=== PATIENT | female | born 1950 | race Caucasian/White ===

== ENCOUNTER 2021-07-10 14:40 | Outpatient (CLI) | payer MEDICARE, OTHER, SELFPAY ==
--- NOTE | 2021-07-10 14:57 | CT_ITS ---
WS: [id number] CT ABDOMEN CONTRAST TECHNIQUE: Contrast enhanced CT of the abdomen with coronal and sagittal reformatted images. CLINICAL INFORMATION: ABD HERNIA COMPARISON: None. DLP: 788.[address] scans at [facility] use at least one of these dose optimization techniques: automated e xposure control; mA and/or kV adjustment per patient size (includes targeted exams where dose is matc hed to clinical indication); or iterative reconstruction. FINDINGS: Wide mouth fat-containing epigastric hernia with hernia mouth measuring 3.6 x 3.3 cm transv erse by craniocaudal Tiny fat-containing umbilical hernia measuring 6 mm. No herniated bowel. Diffuse fatty infiltration of the liver. Normal portal vein and splenic vein. Cholecystectomy clips. Normal spleen. Normal GE ju nction with dilatation common bile duct likely physiologic postcholecystectomy measuring 8 mm. Normal pancreatic parenchymal enhancement. Adrenal glands are normal. Normal renal parenchymal enhancement. No hydronephrosis. Normal celiac and SMA. Normal caliber abdominal aorta. Aortic calcification. Disc space narrowing worse L5-S1. Mild disc bulging L4-L5 and L5-S1. CT/CT abdomen w con* [id number] IMPRESSION: 1. Wide mouth fat-containing epigastric hernia with hernia mouth measuring 3.6 x 3.3 cm transverse by craniocaudal 2. Tiny fat-containing umbilical hernia with hernia mouth measuring 6 mm. 3. Mild diffuse fatty infiltration of the liver. 4. Prior cholecystectomy with dilatation of the common bile duct likely physio logic postcholecystectomy. 5. No other significant findings.
[2021-07-10 16:28] LABS: Blood Urea Nitrogen 11 mg/dL (8-23)
== END 2021-07-10 14:41 | disposition home or self-care (01) ==
PROVIDERS: PCP Nurse Practitioner Family; Visit Provider Nurse Practitioner Family
DX: R10.13 Epigastric pain (principal); R11.0 Nausea; K46.9 Unspecified abdominal hernia without obstruction or gangrene; K76.0 Fatty (change of) liver, not elsewhere classified; Z90.49 Acquired absence of other specified parts of digestive tract
CPT/HCPCS: 74160; 82565; 84520; Q9967

== ENCOUNTER → 2021-07-18 15:29 | Outpatient (BNVA) | payer MEDICARE, OTHER, SELFPAY | PROVIDERS: PCP Nurse Practitioner Family; Visit Provider Surgery | DX: K43.9 Ventral hernia without obstruction or gangrene (principal); Z12.11 Encounter for screening for malignant neoplasm of colon; F17.210 Nicotine dependence, cigarettes, uncomplicated | CPT/HCPCS: 99203 ==

== ENCOUNTER 2021-09-06 06:51 | Day surgery (SDC) | payer MEDICARE, OTHER, SELFPAY ==
[2021-09-04 09:50] VITALS: BMI 29.6
--- NOTE | 2021-09-06 06:15 | P.HP_ITS ---
Same Day Surgery H&P Indication for Procedure/HPI DATE OF PROCEDURE: September 06, 2021 CHIEF COMPLAINT/INDICATIONFOR SURGICAL PROCEDURE: Abdominal pain PREOP DIAGNOSIS: History of hernia and abdominal pain PLANNED PROCEDURE: Operation Date: 09/06/21 08:30 Proposed Procedures p Colonoscopy 33832/z12.11(Not Applicable) - Doug Castillo MD 07/18/2021 This is a pleasant 70-year-old female patient with well-known history of long years of tobacco dependency.? Patient continues to smoke and she does have chronic cough.? Reports history of nausea and vomiting back in April and she ended up getting a CT scan of the abdomen pelvis that did show: 1.? Wide mouth fat-containing epigastric hernia with hernia mouth measuring 3.6 x 3.3 cm transverse by craniocaudal 2.? Tiny fat-containing umbilical hernia with hernia mouth measuring 6 mm. 3.? Mild diffuse fatty infiltration of the liver. 4.? Prior cholecystectomy with dilatation of the common bile duct likely physiologic postcholecystectomy. 5.? No other significant findings. Patient reports no history of associated discomfort or pain related to the hernias and does nausea and vomiting symptoms are gone.? Patient reports that she never had a colonoscopy for screening before. 09/06/2021 Patient comes today for screening colonoscopy ROS All systems have been reviewed negative except as for the above or per problem list. Medications/Allergies* Home Medications Medication Instructions Recorded Confirmed Type cetirizine 10 mg capsule (Allergy 10 mg PO DAILY PRN 07/18/21 09/04/21 History Relief (cetirizine)) ibuprofen 200 mg capsule 200 mg PO Q6H PRN 07/18/21 09/04/21 History Allergies/Adverse Reactions Allergy/AdvReac Type Severity Reaction Status Date / Time No Known Allergies Allergy Verified 09/06/21 07:58 Pertinent History/Comorbid Conditions* Social History Smoking and tobacco status: current every day smoker Pertinent Exam Findings alert, oriented x 3, regular rate & rhythm and procedure specific exam findings (Abdominal examination nontender nondistended soft stable hernia exam) Recommendations Surgery/Procedure today (Screening colonoscopy) Coding Level of Care Code Acute Soldering Machine Operator Automatic for Nava Brooks
[2021-09-06 07:18] VITALS: BP 142/77; PULSE 75; RESP 18; TEMP 36.3; O2SAT 94
[2021-09-06] MEDS: sodium chloride 0.9% 1,000 ML 30 ML IV (07:29)
--- NOTE | 2021-09-06 07:58 | ANES.PREANE2 ---
Pre-Anesthetic Assessment Height/Weight: Height 1.65 m Weight 80.739 kg Temp Pulse Resp BP Pulse Ox 97.3 F L 75 18 142/77 94 09/06/21 07:18 09/06/21 07:18 09/06/21 07:18 09/06/21 07:18 09/06/21 07:18 Preop Diagnosis: Screening colonoscopy Operation Date: 09/06/21 08:30 Proposed Procedures p Colonoscopy 40472/z12.11(Not Applicable) - Doug Castillo MD Familial anesthetic complications: None Was Beta Andrew taken within 24 hours: N/A Was Clonidine taken within 24 hours: N/A Last intake: Intake Last Liquid Date 09/05/21 Last Liquid Time 23:30 Last Solid Date 09/04/21 Social Tobacco and No alcohol Exam alert, oriented x 3 and regular rate & rhythm Airway Submandibular: within normal limits Cervical ROM: within normal limits Mallampati: Class II Dentition: false Pulmonary Chronic Obstructive Pulmonary Disease Anesthetic Plan ASA status: 3 Anesthesia: MAC Medications/Allergies Home Medications Medication Instructions Recorded Confirmed Last Taken Type cetirizine 10 mg capsule (Allergy 10 mg PO DAILY PRN 07/18/21 09/04/21 09/05/21 History Relief (cetirizine)) ibuprofen 200 mg capsule 200 mg PO Q6H PRN 07/18/21 09/04/21 09/05/21 History Allergies Allergy/AdvReac Type Severity Reaction Status Date / Time No Known Allergies Allergy Verified 09/06/21 07:58 Current Medications Generic Name Dose Route Start Last Admin Trade Name Freq PRN Reason Stop Dose Admin Sodium Chloride 1,000 mls @ 30 mls/hr 09/06/21 07:15 09/06/21 07:29 Sodium Chloride 0.9% IV 09/07/21 07:14 30 mls/hr .Q24H NAYELY Administration PFSH Anesthesia Social History Smoking and tobacco status: current every day smoker Data Anesthesia Cardiac Studies: No Data to Display
[2021-09-06 08:58] VITALS: BP 147/90; PULSE 80; RESP 18; TEMP 36.1; O2SAT 92
[2021-09-06 09:10] VITALS: BP 156/87; PULSE 78; RESP 16; TEMP 36.3; O2SAT 94
--- NOTE | 2021-09-06 10:58 | ANE.PACU2 ---
Inpatient post-anesthesia follow up: Airway intact: Yes Vital signs: Temperature 97.4 F Pulse Rate 78 Respiratory Rate 16 Blood Pressure 156/87 Pulse Oximetry 94 Oxygen Delivery Me thod Room Air Oxygen Flow Rate 4 Fraction of Inspir ed Oxygen Hydration adequate: Yes Nausea and vomiting: No Pain level: 1
== END 2021-09-06 09:35 | disposition home or self-care (01) ==
PROVIDERS: PCP Nurse Practitioner Family; Visit Provider Surgery
PROC: 0DJD8ZZ Inspection of Lower Intestinal Tract, Via Natural or Artificial Opening Endoscopic (ICD-10-PCS; CPT 45378; principal; 2021-09-06 08:30)
DX: Z12.11 Encounter for screening for malignant neoplasm of colon (principal); K57.30 Diverticulosis of large intestine without perforation or abscess without bleeding; D12.8 Benign neoplasm of rectum; J44.9 Chronic obstructive pulmonary disease, unspecified; F17.200 Nicotine dependence, unspecified, uncomplicated
CPT/HCPCS: 45385; 88305; J2704; J7030

== ENCOUNTER → 2021-09-24 10:56 | Outpatient (BNVA) | payer MEDICARE, OTHER, SELFPAY | PROVIDERS: PCP Nurse Practitioner Family; Visit Provider Surgery | DX: Z09 Encounter for follow-up examination after completed treatment for conditions other than malignant neoplasm (principal); K57.90 Diverticulosis of intestine, part unspecified, without perforation or abscess without bleeding; K63.5 Polyp of colon | CPT/HCPCS: 99213 ==

== ENCOUNTER 2022-06-12 05:13 | Inpatient (IN) | payer MEDICARE, OTHER, SELFPAY ==
[2022-06-12] VITALS (204 sets, daily range): BP systolic 82–177; BP diastolic 48–113; PULSE 34–85; RESP 12–27; TEMP 36.1–36.9; O2SAT 90–99; BMI 29.7; BMI 30.6
--- NOTE | 2022-06-12 05:18 | ECG_ITS ---
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 Measurements Intervals [place] Rate: 68 P: 71 MN: 147 QRS: 78 QRSD: 92 T: 75 QT: 406 QTc: 433 Interpretive Statements SINUS RHYTHM No previous ECG available for comparison Electronically Signed On 06-12-2022 15:06:23 HOSPITAL NURSING ASSISTANT by Antoine Edmond M.D. [id number]
--- NOTE | 2022-06-12 05:26 | XRR_ITS ---
PROCEDURE INFORMATION: Exam: XR Chest Exam date and time: 06/12/2022 5:30 AM Age: 71 years old Clinical indication: Other: N/v lue tingling; Patient HX: N/v with left upper ext. Tingling. ; Additional info: Cp TECHNIQUE: Imaging protocol: Radiologic exam of the chest. Views: 1 view. COMPARISON: CT abdomen w con* [id number] 07/10/2021 4:11 PM FINDINGS: Lungs: Unremarkable. No consolidation. Pleural spaces: Unremarkable. No pleural effusion. No pneumothorax. Heart/Mediastinum: Unremarkable. No cardiomegaly. Bones/joints: Unremarkable. XR/XR chest 1V portable [id number] IMPRESSION: No acute findings.
--- NOTE | 2022-06-12 05:26 | ECG_ITS ---
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 Measurements Intervals [place] Rate: 50 P: 66 NE: 153 QRS: 81 QRSD: 98 T: 73 QT: 484 QTc: 443 Interpretive Statements SINUS BRADYCARDIA No previous ECG available for comparison Electronically Signed On 06-12-2022 15:06:27 AGENT BASED MODELER by Antoine Edmond M.D. [id number]
--- NOTE | 2022-06-12 05:27 | ED_ITS ---
Documented by User: Uziel Herbert MD 06/12/22 05:39 HPI - Extremity Problem General: Chief complaint: Extremity Problem,Nontraumatic Stated complaint: pain in left arm/shoulder, nausea Time Seen by Provider: 06/12/22 05:21 Source: patient Mode of arrival: ambulatory Limitations: no limitations History of Present Illness: 71-year-old female states she started having some left arm pain last night at midnight states she is also had some nausea states pain is a sharp pain mainly in her upper arms. She denies any chest pain or shortness of breath currently she was seen by her PCP yesterday and was diagnosed with hypertension was started on metoproll.. No history of cardiac disease Associated symptoms: Deny chest pain, fever(s) or rash Review of Systems Const: Denies: fever(s), chills, body aches or change in appetite Eyes: Denies: blurry vision or eye discomfort ENMT: Denies: throat pain or dental pain Card: Denies: chest pain Resp: Denies: dyspnea GI: Reports: nausea : Denies: dysuria Musc: Reports: extremity pain Skin/Breast: Denies: rash Neuro: Denies: headache(s) Psych: Denies: depression Mckay/Lymph: Denies: easy bruising All/Imm: Denies: urticaria PFSH ED PFSH: Medical History Hypertension Social History Smoking and tobacco status: current every day smoker Physical Exam Const: COMMON NORMALS: no acute distress, patient oriented x3 and healthy appearing HENMT: COMMON NORMALS: normocephalic and atraumatic HEAD & SCALP: normocephalic and atraumatic Eye: COMMON NORMALS: Equal, round and reactive pupils present and EOMs intact bilaterally PUPIL: Yes Equal, round and reactive pupils present Neck/C-Spine: COMMON NORMALS: full ROM and supple Chest: COMMONS NORMALS: normal inspection of the chest and normal palpation of entire chest wall Resp: COMMON NORMALS: normal respiratory effort, No retractions, No use of accessory muscles and clear to auscultation bilaterally AUSCULTATION: clear to auscultation bilaterally Cardio: COMMON NORMALS: regular rate, regular rhythm and No murmurs present (Cardio) RATE: regular rate RHYTHM: regular rhythm GI: COMMON NORMALS: Normal to inspection, nondistended, normoactive bowel sounds present, Soft to palpation, non-tender and no masses PALPATION: Yes Soft to palpation Extremity: COMMON NORMALS: normal to inspection and full ROM NARRATIVE EXTREMITY EXAM: Some tenderness to left shoulder left upper arm and attributes her pain Neuro: COMMON NORMALS: patient oriented x3, moves all extremities and no focal motor deficits Psych: COMMON NORMALS: mental status grossly normal, Normal thought process present and cooperative THOUGHT PROCESS: Normal thought process present Skin: COMMON NORMALS: no rashes or lesions noted and no wounds GENERAL SKIN EXAM: no rashes or lesions noted Course Vital Signs: Vital signs: Vital Signs Temperature 97.9 F 06/12/22 05:24 Pulse Rate 61 06/12/22 08:24 Respiratory Rate 16 06/12/22 08:24 Blood Pressure 117/66 06/12/22 08:24 Pulse Oximetry 96 06/12/22 08:24 Oxygen Delivery Me thod 06/12/22 08:24 Oxygen Flow Rate 4 06/12/22 08:24 MDM - Extremity (Nontraumatic) Lab Data 06/12/22 05:30 06/12/22 05:30 Radiology Impressions Chest X-Ray 06/12/22 05:26 IMPRESSION: No acute findings. Chest/Abdomen/Pelvis CTA 06/12/22 06:27 IMPRESSION: 1. No thoracic aortic dissection or aneurysm. 2. No pulmonary embolism. 3. Mild centrilobular emphysema. COMMENTS: In the absence of a history or active diagnosis of lung cancer, it is recommended that this patient with emphysema be evaluated for enrollment in a low dose CT lung cancer screening program. Laboratory Results WBC 8.2 10^3/uL (4.0-10.0) 06/12/22 05:30 RBC 5.17 10^6/uL (4.1-5.3) 06/12/22 05:30 Hgb 15.3 g/dL (11.5-15.3) 06/12/22 05:30 Hct 47.5 % (37.0-47.0) H 06/12/22 05:30 MCV 91.9 fl (81-99) 06/12/22 05:30 MCH 29.6 pg (28.0-34.0) 06/12/22 05:30 MCHC 32.2 g/dL (30.0-36.0) 06/12/22 05:30 RDW 13.1 % (12.1-15.1) 06/12/22 05:30 Plt Count 295 10^3/cmm (130-400) 06/12/22 05:30 MPV 10.8 fL (7.4-10.4) H 06/12/22 05:30 Neut % (Auto) 57.3 % 06/12/22 05:30 Lymph % (Auto) 30.6 % 06/12/22 05:30 [place] % (Auto) 7.6 % 06/12/22 05:30 Eos % (Auto) 3.6 % 06/12/22 05:30 Baso % (Auto) 0.7 % 06/12/22 05:30 Neut # (Auto) 4.67 10^3/uL (1.8-7.7) 06/12/22 05:30 Lymph # (Auto) 2.5 10^3/uL (0.8-4.8) 06/12/22 05:30 [place] # (Auto) 0.6 10^3/uL (0.2-0.9) 06/12/22 05:30 Eos # (Auto) 0.3 10^3/uL (0.0-0.8) 06/12/22 05:30 Baso # (Auto) 0.1 10^3/uL (0.0-0.1) 06/12/22 05:30 Nucleated RBC % (auto) 0 % 06/12/22 05:30 Nucleated RBCs # 0.0 /100WBC 06/12/22 05:30 Sodium 140 mmol/L (136-145) 06/12/22 05:30 Potassium 4.1 mmol/L (3.5-5.1) 06/12/22 05:30 Chloride 103 mmol/L (98-107) 06/12/22 05:30 Carbon Dioxide 26 mmol/L (22-29) 06/12/22 05:30 Anion Gap 15.1 (5-19) 06/12/22 05:30 BUN 13 mg/dL (8-23) 06/12/22 05:30 Creatinine 0.7 mg/dL (0.5-0.9) 06/12/22 05:30 GFR Calculation 82.7 mL/min (90-130) L 06/12/22 05:30 Glucose 95 mg/dL (65-115) 06/12/22 05:30 Calculated Osmolality 290 mOsm/kg (285-295) 06/12/22 05:30 Calcium 9.3 mg/dL (8.5-10.5) 06/12/22 05:30 Total Bilirubin 0.3 mg/dL (0.15-1.2) 06/12/22 05:30 AST 17 U/L (0-32) 06/12/22 05:30 ALT 18 U/L (0-33) 06/12/22 05:30 Alkaline Phosphatase 92 U/L (35-105) 06/12/22 05:30 Troponin T Baseline 15 ng/L (0-10) H 06/12/22 05:30 Total Protein 7.0 g/dL (6.6-8.7) 06/12/22 05:30 Albumin 4.0 g/dL (3.5-5.2) 06/12/22 05:30 Globulin 3.0 g/dL (1.3-4.6) 06/12/22 05:30 TSH 2.52 uIU/mL (0.27-4.20) 06/12/22 05:30 Discharge Plan Discharge Admit Provider: Chriss Feliz Condition: Stable Coding Level of Care Code ED Cost Analyst for Chg Fwd Documented by User: Chung Rodriguez DO 06/12/22 08:31 HPI - Extremity Problem General: Chief complaint: Extremity Problem,Nontraumatic Stated complaint: pain in left arm/shoulder, nausea Time Seen by Provider: 06/12/22 05:21 PFSH ED PFSH: Medical History Hypertension Social History Smoking and tobacco status: current every day smoker Course Vital Signs: Vital signs: Vital Signs Temperature 97.9 F 06/12/22 05:24 Pulse Rate 61 06/12/22 08:24 Respiratory Rate 16 06/12/22 08:24 Blood Pressure 117/66 06/12/22 08:24 Pulse Oximetry 96 06/12/22 08:24 Oxygen Delivery Me thod 06/12/22 08:24 Oxygen Flow Rate 4 06/12/22 08:24 MDM - Extremity (Nontraumatic) Medical Decision Making Patient care handoff received from Dr. Herbert continuation of ED evaluation. I personally saw and evaluated patient and reperformed [place] portions of E/M. While we are waiting the first troponin patient bradycardia down into the 1230s and 20s. She became hypotensive down to an 85 systolic. She was symptomatic with lightheadedness dizziness complained of some epigastric discomfort at that point. Femoral pulses were equal. She was reassessed respiratory status was normal. She did complain of some shortness of breath her lungs sounded clear. She was started on dopamine at 5 mcg/kg and a CTA of the chest and abdomen to evaluate the aorta was done because she was complaining of the pain radiating into her back. CTA was read as normal and there was no significant abdominal findings. Heart rate improved as did the blood pressure after a fluid bolus of 500 cc in the dopamine. Dopamine is decreased to 3 mcg she maintained a pulse in the low to mid 60s and a pressure in the upper 110s. Patient is stable at this time discussed Dr. Feliz as well as with Dr. Newsome. Will be admitted to the ICU for monitoring and further evaluation of her bradycardia. Echocardiogram ordered. Second troponin is pending. Medical Records I reviewed the patient's medical records. Lab Data I reviewed the patient's lab results. 06/12/22 05:30 06/12/22 05:30 Radiology Impressions Chest X-Ray 06/12/22 05:26 IMPRESSION: No acute findings. Chest/Abdomen/Pelvis CTA 06/12/22 06:27 IMPRESSION: 1. No thoracic aortic dissection or aneurysm. 2. No pulmonary embolism. 3. Mild centrilobular emphysema. COMMENTS: In the absence of a history or active diagnosis of lung cancer, it is recommended that this patient with emphysema be evaluated for enrollment in a low dose CT lung cancer screening program. Laboratory Results WBC 8.2 10^3/uL (4.0-10.0) 06/12/22 05:30 RBC 5.17 10^6/uL (4.1-5.3) 06/12/22 05:30 Hgb 15.3 g/dL (11.5-15.3) 06/12/22 05:30 Hct 47.5 % (37.0-47.0) H 06/12/22 05:30 MCV 91.9 fl (81-99) 06/12/22 05:30 MCH 29.6 pg (28.0-34.0) 06/12/22 05:30 MCHC 32.2 g/dL (30.0-36.0) 06/12/22 05:30 RDW 13.1 % (12.1-15.1) 06/12/22 05:30 Plt Count 295 10^3/cmm (130-400) 06/12/22 05:30 MPV 10.8 fL (7.4-10.4) H 06/12/22 05:30 Neut % (Auto) 57.3 % 06/12/22 05:30 Lymph % (Auto) 30.6 % 06/12/22 05:30 [place] % (Auto) 7.6 % 06/12/22 05:30 Eos % (Auto) 3.6 % 06/12/22 05:30 Baso % (Auto) 0.7 % 06/12/22 05:30 Neut # (Auto) 4.67 10^3/uL (1.8-7.7) 06/12/22 05:30 Lymph # (Auto) 2.5 10^3/uL (0.8-4.8) 06/12/22 05:30 [place] # (Auto) 0.6 10^3/uL (0.2-0.9) 06/12/22 05:30 Eos # (Auto) 0.3 10^3/uL (0.0-0.8) 06/12/22 05:30 Baso # (Auto) 0.1 10^3/uL (0.0-0.1) 06/12/22 05:30 Nucleated RBC % (auto) 0 % 06/12/22 05:30 Nucleated RBCs # 0.0 /100WBC 06/12/22 05:30 Sodium 140 mmol/L (136-145) 06/12/22 05:30 Potassium 4.1 mmol/L (3.5-5.1) 06/12/22 05:30 Chloride 103 mmol/L (98-107) 06/12/22 05:30 Carbon Dioxide 26 mmol/L (22-29) 06/12/22 05:30 Anion Gap 15.1 (5-19) 06/12/22 05:30 BUN 13 mg/dL (8-23) 06/12/22 05:30 Creatinine 0.7 mg/dL (0.5-0.9) 06/12/22 05:30 GFR Calculation 82.7 mL/min (90-130) L 06/12/22 05:30 Glucose 95 mg/dL (65-115) 06/12/22 05:30 Calculated Osmolality 290 mOsm/kg (285-295) 06/12/22 05:30 Calcium 9.3 mg/dL (8.5-10.5) 06/12/22 05:30 Total Bilirubin 0.3 mg/dL (0.15-1.2) 06/12/22 05:30 AST 17 U/L (0-32) 06/12/22 05:30 ALT 18 U/L (0-33) 06/12/22 05:30 Alkaline Phosphatase 92 U/L (35-105) 06/12/22 05:30 Troponin T Baseline 15 ng/L (0-10) H 06/12/22 05:30 Total Protein 7.0 g/dL (6.6-8.7) 06/12/22 05:30 Albumin 4.0 g/dL (3.5-5.2) 06/12/22 05:30 Globulin 3.0 g/dL (1.3-4.6) 06/12/22 05:30 TSH 2.52 uIU/mL (0.27-4.20) 06/12/22 05:30 Critical Care Time Critical Care Time: Critical Care Time: Yes Total Critical Care Time: 40 Attestation: The high probability of a clinically significant, sudden or life threatening deterioration of the patient's cardiovascular system(s) required my full and direct attention, intervention and personal management. The critical care time is as shown. This time is in addition to time spent performing any reported procedures but includes the following: [x] Data and vital sign review and interpretation [x] Patient assessment, examination and intervention [x] Documentation [x] Medication orders and management Discharge Plan Discharge Admit Provider: Chriss Feliz Condition: Stable Coding Level of Care Code ED Cost Analyst for Nava Brooks
[2022-06-12] MEDS: aspirin 81 mg Chew Tablet 324 MG PO (05:35)
[2022-06-12] MEDS: ondansetron 2 mg/ML SDV 2 mL 4 MG IVP (05:37)
[2022-06-12] MEDS: morphine 4 mg/mL SDV 1 mL IVP (05:37)
[2022-06-12 05:42] LABS: Basophils # 0.1 10^3/uL (0.0-0.1); Basophils % 0.7 %; Eosinophils # 0.3 10^3/uL (0.0-0.8); Eosinophils % 3.6 %; Hematocrit 47.5 % (37.0-47.0); Hemoglobin 15.3 g/dL (11.5-15.3); Lymphocytes # 2.5 10^3/uL (0.8-4.8); Lymphocytes % 30.6 %; Mean Corpuscular HGB Conc 32.2 g/dL (30.0-36.0); Mean Corpuscular Hemoglobin 29.6 pg (28.0-34.0); Mean Corpuscular Volume 91.9 fl (81-99); Mean Platelet Volume 10.8 fL (7.4-10.4); Monocytes # 0.6 10^3/uL (0.2-0.9); Monocytes % 7.6 %; Neutrophils # 4.67 10^3/uL (1.8-7.7); Neutrophils % 57.3 %; Nucleated Red Blood Cells % 0 %; Platelet Count 295 10^3/cmm (130-400); Red Blood Count 5.17 10^6/uL (4.1-5.3); Red Cell Distribution Width 13.1 % (12.1-15.1); White Blood Count 8.2 10^3/uL (4.0-10.0)
[2022-06-12 06:09] LABS: Alanine Aminotransferase 18 U/L (0-33); Alkaline Phosphatase 92 U/L (35-105); Anion Gap 15.1 (5-19); Aspartate Amino Transferase 17 U/L (0-32); Blood Urea Nitrogen 13 mg/dL (8-23); Calcium 9.3 mg/dL (8.5-10.5); Carbon Dioxide 26 mmol/L (22-29); Chloride 103 mmol/L (98-107); Glomerular Filtration Rate 82.7 mL/min (90-130); Glucose 95 mg/dL (65-115); Osmolality Calculated 290 mOsm/kg (285-295); Potassium 4.1 mmol/L (3.5-5.1); Sodium 140 mmol/L (136-145); Total Bilirubin 0.3 mg/dL (0.15-1.2)
[2022-06-12 06:10] LABS: Troponin(5th) Baseline 15 ng/L (0-10)
--- NOTE | 2022-06-12 06:27 | CTR_ITS ---
PROCEDURE INFORMATION: Exam: CTA Chest With Contrast Exam date and time: 06/12/2022 6:38 AM Age: 71 years old Clinical indication: Sternal or substernal pain; Prior surgery; Surgery type: Gb, appy; Additional info: Chest abd pain radiating into the back TECHNIQUE: Imaging protocol: Computed tomographic angiography of the chest with contrast. 3D rendering (Not supervised by radiologist): MIP and/or 3D reconstructed images were created by the technologist. Radiation optimization: All CT scans at this facility use at least one of these dose optimization techniques: automated exposure control; mA and/or kV adjustment per patient size (includes targeted exams where dose is matched to clinical indication); or iterative reconstruction. Contrast material: OMNI 350; Contrast volume: 100 ml; Contrast route: INTRAVENOUS (IV); REPORTING DATA: Count of CT and Cardiac NM exams in prior 12 months: This patient has received [address] and 0 known cardiac nuclear medicine studies in the 12 months prior to the current study. COMPARISON: CR (CHEST, ) 06/12/2022 5:30 AM RADIATION DOSE METRICS: Total DLP (mGy-cm): 1170.01 FINDINGS: Pulmonary arteries: The pulmonary arteries are adequately opacified for evaluation to the subsegmental level. There is no filling defect to suggest embolism. Aorta: There is mild aortic atherosclerotic disease. There is no aortic dissection or aneurysm. Lungs: There is mild upper lung predominant centrilobular emphysema. There is no consolidation. Pleural spaces: There is no pleural effusion or pneumothorax. Heart: Heart size is normal. There is no pericardial effusion. Coronary arteries: There is mild coronary artery calcification. Lymph nodes: There is no mediastinal or hilar lymphadenopathy. Bones/joints: Bones are unremarkable. Soft tissues: The extrathoracic soft tissues are unremarkable. CT/CT [facility] [id number] IMPRESSION: 1. No thoracic aortic dissection or aneurysm. 2. No pulmonary embolism. 3. Mild centrilobular emphysema. COMMENTS: In the absence of a history or active diagnosis of lung cancer, it is recommended that this patient with emphysema be evaluated for enrollment in a low dose CT lung cancer screening program.
[2022-06-12] MEDS: sodium chloride 0.9% 500 ML 999 ML IV (06:28)
[2022-06-12] MEDS: DOPamine drip 400 MG/250 ML PREMIX 15.22 MG IV (06:28)
[2022-06-12] MEDS: promethazine 25 mg/mL SDV 1 mL 12.5 MG IM (06:38)
--- NOTE | 2022-06-12 06:38 | PC.NURSE ---
0620 - Patient began having sudden, intense epigastric pain radiating into back with bradycardia in low 30s, became diaphoretic and weak with n/v. Dr. Rodriguez advised and at bedside evaluating patient. Verbal order for dopamine at 5 mcg/kg/min and sodium chloride 0.9% 500 mL bolus.
--- NOTE | 2022-06-12 06:41 | PC.NURSE ---
0635 - Patient taken to CT for CTA thoracic with surveillance monitor and Dr. Rodriguez.
[2022-06-12] MEDS: iohexol 350 mg/mL 500 mL Btl (per mL) IV (06:46)
[2022-06-12] MEDS: morphine 4 mg/mL SDV 1 mL 2 MG IVP (06:53)
[2022-06-12 07:02] LABS: Thyroid Stimulating Hormone 2.52 uIU/mL (0.27-4.20)
[2022-06-12 07:58] LABS: Troponin 5 2HR 16.18 ng/L (0-10)
--- NOTE | 2022-06-12 08:09 | P.CONIM_ITS ---
Providers/Reason For Consult Consulting Physician/Specialty*: Elena Newsome MD/cardiology Reason for Consult*: Patient with a left arm pain, bradycardia and hypotension Requesting Physician: Dr. Piedra Attending Physician: Dr. Chriss Feliz Primary Care Provider: STERLING Luna History of Present Illness History of Present Illness Aleyda Elizalde is a 71 year old female, is being admitted to the hospital through the emergency room, where she presented with complaints of left arm pain for the last 2 days and epigastric pain since this morning. While being in the emergency room, she had an episode of hypotension and bradycardia. Cardiology consult is requested for further cardiac evaluation recommendations. This patient has a longstanding history of smoking abuse. She smokes 1 to 2 pack a day for the last 15 years or so. For the last 2 days, she been having an aching sensation in the left arm. The pain is intermittent. It may last anywhere from few minutes to few hours. She has been having these episodes several times within the last 2 days. Around midnight, she woke up with this pain. Then she went back to bed. Around 4:00, she woke her up because of the worsening pain in the left arm. She also started having some epigastric discomfort around this time. This was associate with nausea and vomiting. Because of the symptoms, she was brought to the emergency room. She has no chest pain as such. She may have some shortness of breath. (The patient appeared to be drowsy while I was examining her. Information is partly from the patient, her and also of the medical records.). She denies any other associated symptoms or radiation of pain. This patient has a history of epigastric pain for the last few years. She had a CT of the abdomen and pelvis in the past which revealed epigastric and umbilical hernias. The details are as mentioned below. She also has history of chronic low back pain. Otherwise she has no significant past medical history. No history for diabetes, dyslipidemia or hypertension. She was seen by her primary care provider yesterday and was found to have an elevated blood pressure. So for the first time, she was started on a blood pressure medicine of metoprolol 25 mg p.o. twice daily. She took her first dose around 5 PM yesterday. She has no previous history for any coronary artery disease, myocardial infarction or congestive heart failure. At the time of the ER visit, her vital signs were stable. For epigastric pain and nausea, she was given a GI cocktail. Sometime later, she was found to have bradycardia with a heart rate in the 30s and 40s. Her systolic blood pressure also dropped in the 80s. She was started on dopamine drip. Her heart rate immediately jumped up into the 70s and 80s; so also the blood pressure went up i nto the 160s. Currently she is on dopamine of 3 mics per KG per minute. She has no fever or chills. No significant cough. She has a history of chronic smoker's cough. Her father and brother had abdominal aortic aneurysm in the 60s. Both parents also had a heart attacks in their 60s. Her paternal and maternal grandparents also had heart problems. Details are not available at this time. Review of Systems Narrative: CONSTITUTIONAL: No fever or chills. [] EYES: No blurring of vision or other visual disturbances lately. [] ENT: No hoarseness of voice, auditory disturbances or sore throat. [] CARDIOVASCULAR: As mentioned above. [] RESPIRATORY: Longstanding history of smoking abuse. Chronic cough. GASTROINTESTINAL: As mentioned above GENITOURINARY: No dysuria or hematuria. [] INTEGUMENTARY: No skin rashes or history of skin cancer. [] NEURO: No transient ischemic attacks or amaurosis. [] PSYCHIATRIC: No history of psychosis or major depression. [] HEMATOLOGIC: No bleeding disorders or significant anemia. [] ENDOCRINE: No history of polyuria or polydipsia. [] MUSCULOSKELETAL: No recent joint pain or swelling. [] ALLERGY/IMMUNOLOGY: As mentioned above. [] Medications/Allergies Home Medications Medication Instructions Recorded Confirmed Last Taken Type albuterol sulfate 90 mcg/actuation 2 puff inhalation QID PRN 06/12/22 06/12/22 Unknown History aerosol inhaler (Ventolin HFA) Shortness Of Breath aspirin 81 mg tablet,delayed 81 mg PO DAILY 06/12/22 06/12/22 Unknown History release ibuprofen 200 mg tablet 400 mg PO Q6H PRN Pain 06/12/22 06/12/22 Unknown History metoprolol tartrate 25 mg tablet 25 mg PO BID 06/12/22 06/12/22 06/11/22 18:00 History nitroglycerin 0.4 mg sublingual 0.4 mg sublingual Q5M PRN Chest 06/12/22 06/12/22 Unknown History tablet (Nitrostat) Pain Allergies Allergy/AdvReac Type Severity Reaction Status Date / Time No Known Allergies Allergy Verified 06/12/22 06:57 Current Medications Generic Name Dose Route Start Last Admin Trade Name Freq PRN Reason Stop Dose Admin Dopamine HCl/Dextrose 400 mg in 250 mls @ 15.224 mls/hr 06/12/22 06:30 06/12/22 06:45 Intropin Drip IV 3 mcg/kg/min CONT NAYELY 9.13 mls/hr Titration Protocol 5 MCG/KG/MIN PFSH Acute PFSH: Medical History Hypertension Social History Smoking and tobacco status: current every day smoker Vitals/I&O/Wt Last Vital Signs Temp 97.9 F 06/12/22 05:24 Pulse 60 06/12/22 07:32 Resp 17 06/12/22 07:32 BP 145/76 06/12/22 07:32 Pulse Ox 90 06/12/22 07:32 O2 Del Method 06/12/22 07:32 O2 Flow Rate 4 06/12/22 07:32 06/11/22 06/12/22 06/12/22 22:59 06:59 14:59 Intake Total 4.312 / 4.312 Balance 4.312 / 4.312 Weight last 48 hrs Weight 179 lb Physical Exam Narrative: GENERAL: The patient is alert and oriented times three. Not in any acute distress. HEENT: No significant pallor, icterus or lymphadenopathy.Oral cavity: There are no mucous membrane lesions. NECK: Trachea appears to be central. No masses noted. No JVD or thyromegaly appreciated. RESPIRATORY: Chest is symmetrical. No intercostals muscle retraction or any accessory muscle activation. There is no chest wall tenderness. Breath sounds are heard bilaterally. No rales or rhonchi heard. No evidence of any consolidation. BREASTS: Deferred. HEART: The heart sounds are normal. No S3 or S4. No significant murmurs. No pericardial rub ABDOMEN: Epigastric discomfort. No vessel pulsations or distention. No tenderness. No organomegaly appreciated. Bowel sounds are normally heard. : Deferred. RECTAL: Deferred. LYMPHATIC: No lymphadenopathy noted in the neck. EXTREMITIES: No edema or cyanosis. No clubbing. MUSCULOSKELETAL: No acute joint deformities or swelling SKIN: There are no significant rashes or ecchymosis NEUROPSYCHIATRIC: The patient is alert and oriented x3. Appears to be in a good mood. No tremors or rigidity noted. Urinary Catheter Management: Vernon: Cath Placed During This Visit: yes Urinary Catheter Date of Insertion: 06/12/22 Urinary Catheter Time of Insertion: 07:25 Data 06/12/22 05:30 06/12/22 05:30 Other Labs: Laboratory Last Values WBC 8.2 10^3/uL (4.0-10.0) 06/12/22 05:30 RBC 5.17 10^6/uL (4.1-5.3) 06/12/22 05:30 Hgb 15.3 g/dL (11.5-15.3) 06/12/22 05:30 Hct 47.5 % (37.0-47.0) H 06/12/22 05:30 MCV 91.9 fl (81-99) 06/12/22 05:30 MCH 29.6 pg (28.0-34.0) 06/12/22 05:30 MCHC 32.2 g/dL (30.0-36.0) 06/12/22 05:30 RDW 13.1 % (12.1-15.1) 06/12/22 05:30 Plt Count 295 10^3/cmm (130-400) 06/12/22 05:30 MPV 10.8 fL (7.4-10.4) H 06/12/22 05:30 Neut % (Auto) 57.3 % 06/12/22 05:30 Lymph % (Auto) 30.6 % 06/12/22 05:30 Jessamine % (Auto) 7.6 % 06/12/22 05:30 Eos % (Auto) 3.6 % 06/12/22 05:30 Baso % (Auto) 0.7 % 06/12/22 05:30 Neut # (Auto) 4.67 10^3/uL (1.8-7.7) 06/12/22 05:30 Lymph # (Auto) 2.5 10^3/uL (0.8-4.8) 06/12/22 05:30 Jessamine # (Auto) 0.6 10^3/uL (0.2-0.9) 06/12/22 05:30 Eos # (Auto) 0.3 10^3/uL (0.0-0.8) 06/12/22 05:30 Baso # (Auto) 0.1 10^3/uL (0.0-0.1) 06/12/22 05:30 Nucleated RBC % (auto) 0 % 06/12/22 05:30 Nucleated RBCs # 0.0 /100WBC 06/12/22 05:30 Sodium 140 mmol/L (136-145) 06/12/22 05:30 Potassium 4.1 mmol/L (3.5-5.1) 06/12/22 05:30 Chloride 103 mmol/L (98-107) 06/12/22 05:30 Carbon Dioxide 26 mmol/L (22-29) 06/12/22 05:30 Anion Gap 15.1 (5-19) 06/12/22 05:30 BUN 13 mg/dL (8-23) 06/12/22 05:30 Creatinine 0.7 mg/dL (0.5-0.9) 06/12/22 05:30 GFR Calculation 82.7 mL/min (90-130) L 06/12/22 05:30 Glucose 95 mg/dL (65-115) 06/12/22 05:30 Calculated Osmolality 290 mOsm/kg (285-295) 06/12/22 05:30 Calcium 9.3 mg/dL (8.5-10.5) 06/12/22 05:30 Total Bilirubin 0.3 mg/dL (0.15-1.2) 06/12/22 05:30 AST 17 U/L (0-32) 06/12/22 05:30 ALT 18 U/L (0-33) 06/12/22 05:30 Alkaline Phosphatase 92 U/L (35-105) 06/12/22 05:30 Troponin T Baseline 15 ng/L (0-10) H 06/12/22 05:30 Troponin T 120 Minute 16.18 ng/L (0-10) H 06/12/22 07:31 Delta Troponin T 1.18 ABS# (0-10) 06/12/22 07:31 Total Protein 7.0 g/dL (6.6-8.7) 06/12/22 05:30 Albumin 4.0 g/dL (3.5-5.2) 06/12/22 05:30 Globulin 3.0 g/dL (1.3-4.6) 06/12/22 05:30 TSH 2.52 uIU/mL (0.27-4.20) 06/12/22 05:30 EKG 1: My Interpretation: Normal sinus rhythm with normal ST Ts. Normal CA and QRS duration EKG 2: My Interpretation: Sinus bradycardia with a heart rate in the 40s. Normal ST Ts. Normal CA and QRS duration A&P Assessment and plan (1) Left arm pain: The etiology of the left arm pain is not clear at this time. He has no EKG evidence of ischemia. Initial enzymes are negative for myocardial injury. In view of her risk factors possibility of underlying coronary ischemia causing this cannot be completely excluded. Serial cardiac enzymes and EKGs might be appropriate. An echocardiogram would be helpful to evaluate LV function. Once a myocardial infarction ruled out, if there is no evidence of any ischemia based on the EKG or echocardiogram, may need to consider a myocardial l perfusion imaging to further evaluate the symptoms. (2) Epigastric pain: Most likely this is unrelated to the heart. Apparently she had similar symptoms in the past. May need to look more into the umbilical and epigastric hernia or other etiologies. (3) Bradycardia: The bradycardia most likely from the epigastric pain/nausea. The EKG showed sinus bradycardia. No ST-T changes. (4) Hypotension: Most likely a vasovagal reaction. Currently she is normotensive. Apparently she came to the emergency room with elevated blood pressure in the 160s (5) Smoking addiction: Patient strongly advised to quit smoking Plan The problems are Recently diagnosed hypertension Chronic back pain Umbilical/epigastric hernia Colon polyps Echocardiogram to evaluate LV function and rule out any other pathology. Serial cardiac enzymes and EKGs. After reviewing these, further recommendations will be made Thank you for the opportunity to evaluate this patient and make these recommendations Consult Attestations Medical Necessity Statement: Patient requires continued hospital stay for close monitoring and further management Coding Level of Care Code 43411 Diagnoses Left arm pain M79.602 Epigastric pain R10.13 Bradycardia R00.1 Hypotension I95.9 Smoking addiction F17.657
[2022-06-12 08:15] LABS: Troponin 5 2HR Delta 1.18 ABS# (0-10)
--- NOTE | 2022-06-12 09:29 | P.HP_ITS ---
Providers/Chief Complaint Admitting Physician: Chriss Feliz MD Primary Care Provider: STERLING Luna Chief Complaint: pain in left arm/shoulder, nausea History of Present Illness Aleyda Elizalde is a 71 year old female presenting to the hospital with complaints of some left arm pain for the last 2 days. She states it usually occurs when she lays down at night. It is rather severe, and squeezing in nature and can come and go. The longest is lasted this 1 hour. She reports it is not present currently. She also has had some epigastric discomfort at times as well as nausea. She denies any chest discomfort. No blood in stools or black or tarry stools. She does not think the arm discomfort and epigastric discomfort go together. She has had no fevers. She is not short of breath. She has had some abdominal complaints for a while. Yesterday, she was seen by her primary care provider and beta-jose g was initiated for hypertension. A nuclear stress test was being considered as well. In the emergency department she had some discomfort. She received pain medication for her discomfort. At some point in her emergency department course she had significant nausea, and it was found that her heart rate dipped down into the 30s and systolic blood pressure in the 80s. She was put on a dopamine drip and this rapidly corrected. Her last dose of beta-jose g was last night. With transition over to the ICU the dopamine drip has been able to be discontinu ed. Patient continues to smoke. Family history of heart disease is present. Some shortness of breath with exertion but the patient reports she expects this secondary to her smoking Review of Systems General: Reports: 10 or more systems reviewed and unremarkable except in HPI and below Const: Denies: fever(s) or chills Card: Denies: chest pain Resp: Reports: dyspnea; Denies: productive cough GI: Reports: abdominal pain, nausea and vomiting; Denies: hematemesis, hematochezia or melena : Denies: flank pain Neuro: Denies: headache(s) Medications/Allergies Home Medications Medication Instructions Recorded Confirmed Last Taken Type albuterol sulfate 90 mcg/actuation 2 puff inhalation QID PRN 06/12/22 06/12/22 Unknown History aerosol inhaler (Ventolin HFA) Shortness Of Breath aspirin 81 mg tablet,delayed 81 mg PO DAILY 06/12/22 06/12/22 Unknown History release ibuprofen 200 mg tablet 400 mg PO Q6H PRN Pain 06/12/22 06/12/22 Unknown History metoprolol tartrate 25 mg tablet 25 mg PO BID 06/12/22 06/12/22 06/11/22 18:00 History nitroglycerin 0.4 mg sublingual 0.4 mg sublingual Q5M PRN Chest 06/12/22 06/12/22 Unknown History tablet (Nitrostat) Pain Allergies Allergy/AdvReac Type Severity Reaction Status Date / Time No Known Allergies Allergy Verified 06/12/22 06:57 PFSH Acute PFSH: Medical History Hypertension Smoking addiction Surgical History H/O tubal ligation H/O: hysterectomy History of appendectomy History of breast biopsy History of cholecystectomy Family History (Updated 06/12/22 @ 14:36 by Chriss Feliz MD) Other CAD (coronary artery disease) Social History (Updated 06/12/22 @ 14:36 by Chriss Feliz MD) Smoking and tobacco status: current every day smoker Alcohol intake: never Substance/Drug Use: never Vitals/I&O/Wt Last Vital Signs Temp 97.9 F 06/12/22 05:24 Pulse 60 06/12/22 08:30 Resp 24 H 06/12/22 08:30 BP 117/66 06/12/22 08:30 Pulse Ox 96 06/12/22 08:24 O2 Del Method 06/12/22 08:24 O2 Flow Rate 4 06/12/22 08:24 06/11/22 06/12/22 06/12/22 22:59 06:59 14:59 Intake Total 4.312 / 4.312 Balance 4.312 / 4.312 Weight last 48 hrs Weight 81.193 kg Physical Exam Narrative: General exam is white female, no current distress. Reports some epigastric discomfort. HEENT: Atraumatic normocephalic. Pupils equally round. Oropharynx clear. Neck is supple no lymphadenopathy thyromegaly Cardiovascular regular rate and rhythm, no murmur Lungs clear no wheezing or crackles Abdomen is soft with positive bowel sounds. I cannot reproduce her epigastric discomfort she reports is mild with any kind of palpation. No obvious organomegaly exam is deferred Extremities no cyanosis clubbing or edema, cap refill brisk Skin no rash Neuro no obvious focal deficits. Urinary Catheter Management: Vernon: Cath Placed During This Visit: yes Urinary Catheter Date of Insertion: 06/12/22 Urinary Catheter Time of Insertion: 07:25 Data 06/12/22 05:30 06/12/22 05:30 Other Labs: Initial troponin 15, 2-hour 16, 6-hour 25 TSH 2.52 Magnesium 2.0 LFTs normal Chest x-ray which I reviewed demonstrated no infiltrate CTA of chest abdomen pelvis demonstrates some mild coronary calcification, no aneurysm, no pulmonary embolism, and some mild emphysema Echo which was prompted to the emergency department demonstrated a normal EF, grade 1/4 diastolic dysfunction, estimated pulmonary artery pressure of 30 Last EKG demonstrates sinus bradycardia with a rate of 52, normal axis, no acute changes. I reviewed this in detail A&P Assessment and plan (1) Bradycardia: Patient had significant episode of bradycardia. This was associated with hy potension. She did receive a new prescription of metoprolol, with her last dose being the night before. This could have contributed, other possibilities include vasovagal episode in the emergency department, sick sinus syndrome. Cannot completely rule out coronary disease playing a role. She has been able to wean off dopamine. Continue telemetry, with reinitiation of dopamine if needed. Echocardiogram has been completed, and EF appears preserved. No wall motion abnormalities. Cardiology is considering nuclear stress test tomorrow. (2) Hypotension: See above (3) Elevated troponin: Positive delta troponin, could be secondary to hypotension and bradycardia. Cardiology contemplating further work-up with nuclear stress testing. (4) Smoking addiction: Encouraged abstaining from tobacco (5) Left arm pain: Etiology uncertain. Concern would be that this is anginal equivalent. However this would be very atypical and is not exertionally related. (6) Epigastric pain: Initiate Protonix twice daily IV This sounds like it has been a long-term problem for the patient. Plan Other medical problems as outlined in past medical history Full code currently Lovenox for DVT prophylaxis Attestations Medical Necessity Statement*: Will require less than 2 midnight stay for evaluation and treatment of bradycardia and hypotension which are resolved Diagnoses Bradycardia R00.1 Hypotension I95.9 Elevated troponin R77.8 Smoking addiction F17.200 Left arm pain M79.602 Epigastric pain R10.13 Time Spent (min) 51
--- NOTE | 2022-06-12 09:42 | USCV_ITS ---
Aleyda Elizalde Age: 71 Gender: F : 1950 Exam Date: 06/12/2022 10:11 Ordering Phys: Chung Rodriguez DO Technologist: Stanley Parry Exam Location: [facility] Indication: bradycardia, chest pain BP: 137 / 71 HR: 64 Rhythm: Sinus Technical Quality: Adequate MEASUREMENTS (Male / Female) Normal Values 2D ECHO LV Diastolic Diameter PLAX 4.8 cm 4.2 - 5.9 / 3.9 - 5.3 cm LV Systolic Diameter PLAX 2.9 cm IVS Diastolic Thickness 0.9 cm 0.6 - 1.0 / 0.6 - 0.9 cm IVS Systolic Thickness 1.0 cm LVPW Diastolic Thickness 1.4 cm 0.6 - 1.0 / 0.6 - 0.9 cm LVPW Systolic Thickness 1.6 cm LVOT Diameter 2.0 cm LV Ejection Fraction 2D Teich 68.7 % LV Ejection Fraction MOD 2C 60.5 % LV Ejection Fraction 2C AL 61.5 % LA Diameter 3.1 cm LA Width 3.5 cm LA Height 4.2 cm RA Width 3.5 cm RA Height 4.0 cm Aorta at Sinotubular Diameter 2.2 cm IVC Diameter 1.6 cm M-MODE Aortic Annulus Diameter 2.2 cm LA Ao Ratio MM 1.4 MV E Point Septal Separation 0.4 cm DOPPLER AV Peak Velocity 199.3 cm/s LVOT Peak Velocity 117.0 cm/s AV Area Cont Eq vti 2.3 cm squared AV Area Cont Eq pk 1.9 cm squared MV Peak Velocity 143.0 cm/s MV Area PHT 4.0 cm squared Mitral E to A Ratio 0.8 MV E' Velocity 43.0 cm/s Mitral E to MV E' Ratio 10.8 Mitral E to LV E' Lateral Ratio 10.8 Mitral E to LV E' Septal Ratio 10.9 TR Peak Velocity 266.1 cm/s TR Peak Gradient 28.3 mmHg TR Mean Velocity 222.9 cm/s TR Mean Gradient 20.8 mmHg TR Velocity Time Integral 64.9 cm Right Atrial Pressure 3.0 mmHg Pulmonary Artery Systolic Pressu 31.3 mmHg PV Peak Velocity 100.0 cm/s RV Acceleration Time 0.1 s RV Ejection Time 0.3 s RV AcT/ET 0.4 FINDINGS Left Ventricle Normal left ventricular size and systolic function, EF 67 %. No regional wall motion abnormalities. Grade I/IV diastolic dysfunction (abnormal relaxation filling pattern), normal to mildly elevated filling pressures. Right Ventricle The right ventricle is normal in size and function. Right Atrium The right atrium is normal in size. Left Atrium The left atrium is normal in size. Mitral Valve No gross abnormalities noted Aortic Valve Thickened aortic valve. Aortic valve sclerosis. Tricuspid Valve Trace tricuspid valve regurgitation. Pulmonic Valve Pulmonic valve not well visualized. Pericardium Normal pericardium without effusion. Aorta Normal ascending aorta dimension. IVC Normal inferior vena cava. CONCLUSIONS Normal left ventricular size and systolic function, EF 67 %. No regional wall motion abnormalities. Grade I/IV diastolic dysfunction (abnormal relaxation filling pattern), normal to mildly elevated filling pressures. Features of aortic valve sclerosis Trace tricuspid valve regurgitation. Estimated pulmonary artery peak systolic pressure of 31 mmHg There is no pericardial effusion. There are no intracardiac masses. No similar previous studies are available for comparison Dr Mag Newsome MD FACC (Electronically Signed) Final Date: 12 June 2022 13:45 S
[2022-06-12] MEDS: sodium chloride 0.9% 1,000 ML 100 ML IV ×2 (10:09→19:48)
[2022-06-12] MEDS: enoxaparin 40 mg/0.4 mL Syringe SUBCUT (10:09)
[2022-06-12] MEDS: pantoprazole 40 mg SDV IVP ×2 (10:10→21:28)
--- NOTE | 2022-06-12 11:26 | ECG_ITS ---
[facility] Test Date: 2022-06-12 Pat Name: Aleyda Elizalde Department: Room: 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 Measurements Intervals [place] Rate: 52 P: 67 FL: 145 QRS: 76 QRSD: 93 T: 77 QT: 473 QTc: 442 Interpretive Statements SINUS BRADYCARDIA Compared to ECG 06/12/2022 06:17:23 No significant changes Electronically Signed On 06-12-2022 15:13:11 GLOVE [employer]GER by Antoine Edmond M.D. [id number]
--- NOTE | 2022-06-12 14:48 | ECG_ITS ---
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 Interpretive Statements NAME OF STUDY: LEXISCAN SESTAMIBI STRESS TEST INDICATION: Elevated Troponin, PROCEDURE: At the baseline, the EKG revealed normal sinus rhythm with some nonspecific T wave changes. The baseline heart was 73 bpm with a blood pressue of 81/50 mm of Hg Lexiscan was infused over a period of 20 seconds. A total of 0.4 milligrams of Lexiscan was infused. The stress phase was continued for a total of 5 minutes. Heart rate at the end of the stress phase was 114 bpm with a blood pressure 118/72 mm of Hg. The EKG at the peak infusion revealed no significant changes. Sestamibi was injected 20 seconds after the Lexiscan infusion. Heart rate at the end of the recovery phase was 91 bpm with a blood pressure of 125/67 mm of Hg. CONCLUSION: 1. No significant EKG changes with the LexiScan infusion 2. No LexiScan induced chest pain or cardiac arrhythmia 3. Normal blood pressure and heart rate response 4. Sestamibi/sestamibi perfusion scan pending; see separate report. Electronically Signed On 06-13-2022 10:09:59 FITTER MACHINIST by Mag Newsome M.D. [id number]
--- NOTE | 2022-06-12 17:50 | PC.NURSE ---
REceived patient from ER staff at 1004. Patient is awake and alert. BP: 137/71, HR: 64, RR: 18. 94% on room air.CUrrently on 3mcg of dopamine.
--- NOTE | 2022-06-12 17:51 | PC.NURSE ---
SHift SUmmary: uneventful shift, after arriving in ICU, patient was quickly titrated off of dopamine. He remained normal sinus with blood pressures within normal limits throughout shift. Patient reports that she is symptom free.
[2022-06-13] VITALS (56 sets, daily range): BP systolic 123–180; BP diastolic 66–108; PULSE 58–102; RESP 12–40; TEMP 36.4–37.1; O2SAT 90–97
[2022-06-13] MEDS: hyDRALAzine 20 mg/mL INJ 1 mL 10 MG IVP (03:14)
--- NOTE | 2022-06-13 03:33 | ECG_ITS ---
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 Measurements Intervals [place] Rate: 97 P: 67 DC: 132 QRS: 82 QRSD: 90 T: 76 QT: 348 QTc: 444 Interpretive Statements SINUS RHYTHM WITH SINUS ARRHYTHMIA MODERATE ST DEPRESSION [0.05+ mV ST DEPRESSION] Compared to ECG 06/12/2022 14:04:49 ST (T wave) deviation now present Sinus bradycardia no longer present Electronically Signed On 06-13-2022 23:36:15 [employer] by Mag Newsome M.D. [id number]
[2022-06-13] MEDS: ondansetron 2 mg/ML SDV 2 mL 4 MG IVP (03:48)
[2022-06-13 03:50] LABS: Basophils # 0.1 10^3/uL (0.0-0.1); Basophils % 0.7 %; Eosinophils # 0.3 10^3/uL (0.0-0.8); Eosinophils % 3.3 %; Hematocrit 43.4 % (37.0-47.0); Hemoglobin 13.7 g/dL (11.5-15.3); Lymphocytes # 1.6 10^3/uL (0.8-4.8); Lymphocytes % 21.7 %; Mean Corpuscular HGB Conc 31.6 g/dL (30.0-36.0); Mean Corpuscular Hemoglobin 29.8 pg (28.0-34.0); Mean Corpuscular Volume 94.6 fl (81-99); Mean Platelet Volume 11.8 fL (7.4-10.4); Monocytes # 0.6 10^3/uL (0.2-0.9); Monocytes % 7.4 %; Neutrophils # 5.05 10^3/uL (1.8-7.7); Neutrophils % 66.6 %; Nucleated Red Blood Cells % 0 %; Platelet Count 229 10^3/cmm (130-400); Red Blood Count 4.59 10^6/uL (4.1-5.3); Red Cell Distribution Width 13.4 % (12.1-15.1); White Blood Count 7.6 10^3/uL (4.0-10.0)
[2022-06-13] MEDS: morphine 4 mg/mL SDV 1 mL 2 MG IVP (03:59)
[2022-06-13 04:10] LABS: Alanine Aminotransferase 470 U/L (0-33); Albumin Level 3.5 g/dL (3.5-5.2); Alkaline Phosphatase 133 U/L (35-105); Anion Gap 12.2 (5-19); Aspartate Amino Transferase 399 U/L (0-32); Blood Urea Nitrogen 11 mg/dL (8-23); Calcium 8.7 mg/dL (8.5-10.5); Carbon Dioxide 27 mmol/L (22-29); Chloride 106 mmol/L (98-107); Globulin 2.6 g/dL (1.3-4.6); Glomerular Filtration Rate 98.8 mL/min (90-130); Glucose 88 mg/dL (65-115); Magnesium 1.9 mg/dL (1.7-2.3); Osmolality Calculated 291 mOsm/kg (285-295); Potassium 4.2 mmol/L (3.5-5.1); Sodium 141 mmol/L (136-145); Total Bilirubin 0.5 mg/dL (0.15-1.2); Total Protein 6.1 g/dL (6.6-8.7)
[2022-06-13] MEDS: sodium chloride 0.9% 1,000 ML 100 ML IV (05:51)
[2022-06-13 07:42] LABS: Hepatitis A Antibody IgM Non-Reactive (Nonreactive); Hepatitis B Core IgM Non-Reactive (Nonreactive); Hepatitis B Surface Antigen Non-Reactive (Nonreactive); Hepatitis C Virus Antibody Non-Reactive (Nonreactive)
[2022-06-13] MEDS: regadenoson 0.4 Mg/5 ml Syringe IVP (07:43)
--- NOTE | 2022-06-13 08:00 | NMCV_ITS ---
NM janae perf SPECT r/s* [id number] Aleyda Elizalde Age: 71 Gender: F : 1950 Exam Date: 06/13/2022 07:11 Ordering Phys: Chriss Feliz MD Technologist: SPIKE Dailey Exam Location: [facility] Indications: CHEST PAIN STRESS TEST Please see separate stress test report in [facility] for full findings IMAGE PROTOCOL Rest/Stress 1 Lexiscan Day Radiopharmaceutical Dose (mCi) Administration Site Administered by Rest: Tc-99m 10.9 IV SPIKE Pope Sestamibi Stress:Tc-99m 32.7 IV SPIKE Pope Sestamibi Rest: 13-Jun-2022 60 Discovery 630 Stress: 13-Jun-2022 30 Discovery 630 0.4mg Lexiscan. Supine position only as patient was unable to lay prone. SPECT RESULTS Technical Quality: Excellent Raw Data Analysis: Normal Image Corrections: No attenuation or motion correction applied Summed Stress Score: 16 Summed Rest Score: 15 Summed Difference Score: 1 PERFUSION FINDINGS Moderate area of severely decreased tracer uptake in the mid and apical anterior, mid anterolateral, inferolateral, apical lateral and LV apex. Subtle area of reversibility was noted in the apical region. FUNCTIONAL RESULTS (calculated via Gated SPECT) Stress Image LV EF (%): 72 Stress EDV (mL):94 TID: 1.48 Stress ESV (mL):26 FUNCTIONAL FINDINGS: Segmental wall motion analysis revealing no gross wall motion abnormalities IMPRESSIONS 1. Myocardial perfusion imaging revealing moderate area of persistent decreased tracer uptake, involving the anterior, anterolateral, inferolateral and apical regions with a subtle area of reversibility suggesting myocardial scarring in the distribution of the left anterior descending artery and circumflex artery with subtle areas of kymberly-infarction ischemia. 2. Normal LV ejection fraction 72%. 3. LV wall motion analysis revealing no gross wall motion normalities 4. Normal LV volume 5. Elevated transient ischemic dilatation ratio, may suggest endocardial ischemia. The positive predictive value is limited. Clinical correlation is recommended Dr Mag Newsome MD FACC (Electronically Signed) Final Date: 13 June 2022 10:07 S
[2022-06-13] MEDS: aminophylline 25 mg/mL SDV 10 mL IVP (08:02)
[2022-06-13 08:08] LABS: Lipase 30 U/L (13-60)
[2022-06-13] MEDS: pantoprazole 40 mg SDV IVP ×2 (09:25→21:35)
[2022-06-13] MEDS: enoxaparin 40 mg/0.4 mL Syringe SUBCUT (09:25)
[2022-06-13] MEDS: aspirin 81 mg EC Tablet PO (09:25)
--- NOTE | 2022-06-13 12:01 | PC.NURSE ---
Patient up to chair with a visitor at bedside, patient verbalizes desire to go home. During each rounding this morning patient denies any pain, but does note slight chest discomfort. Dr. Feliz notified of this while patient was off unit for stress test. See results of test for results. Patient now reports no chest discomfort and no left arm pain.
[2022-06-13] MEDS: nitroglycerin 0.4 mg sublingual Tablet SUBLINGUAL (13:28)
--- NOTE | 2022-06-13 13:48 | PC.NURSE ---
Dr. Newsome at bedside, patient reported mild chest pain/discomfort. 1 tablet of nitroglycerin given, see MAR. Patient reported no change in chest pain. Dr. Newsome did not want further tablets given at this time.
--- NOTE | 2022-06-13 14:21 | PM.PN ---
Subjective Subjective: Aleyda reports no nausea, epigastric pain, or left arm discomfort. She has had some chest discomfort. 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 Medications: Reviewed: Yes Vitals/I&O/Wt Last Vital Signs Temp 97.8 F 06/13/22 09:45 Pulse 83 06/13/22 12:00 Resp 15 06/13/22 12:00 BP 156/90 06/13/22 12:00 Pulse Ox 91 06/13/22 12:00 O2 Del Method 06/13/22 12:00 O2 Flow Rate 2 06/13/22 12:00 06/12/22 06/13/22 06/13/22 22:59 06:59 14:59 Intake Total 1205 / 8441.478 7693 / 2986.417 300 / 300 Output Total 400 / 525 1300 / 1825 1500 / 1500 Balance 805 / 1461.417 -300 / 1161.417 -1200 / -1200 Weight last 48 hrs Weight 82.1 kg Weight 83.461 kg Weight 81.193 kg Physical Exam Narrative: General exam no distress Cardiovascular regular rate and rhythm, no murmur Lungs clear no wheezing or crackles Abdomen is soft with positive bowel sounds Extremities no cyanosis clubbing or edema, cap refill brisk Skin no rash Urinary Catheter Management: Vernon: Cath Placed During This Visit: yes Reason for Continuing Indwelling Catheter: Accurate Measurement of Urinary Output in Critically Ill Patients Urinary Catheter Date of Insertion: 06/12/22 Urinary Catheter Time of Insertion: 07:25 Data 06/13/22 02:45 06/13/22 02:45 A&P Assessment and plan (1) Bradycardia: Patient had significant episode of bradycardia. This was associated with hypotension. She did receive a new prescription of metoprolol, with her last dose being the night before. This could have contributed, other possibilities include vasovagal episode in the emergency department, sick sinus syndrome. Cannot completely rule out coronary disease playing a role. She has not needed dopamine since admission and has not had no recurrence of severe bradycardia Echocardiogram has been completed, and EF appears preserved. No wall motion abnormalities. Cardiology has evaluated and nuclear stress test been performed. Elevated 3 times daily ratio, and some kymberly-infarct ischemia were noted. Plan is for angiogram tomorrow. Repeat CBC and electrolytes tomorrow. (2) Hypotension: See above (3) Elevated troponin: Positive delta troponin, could be secondary to hypotension and bradycardia. Cardiology contemplating further work-up with nuclear stress testing has been completed which is abnormal. Angiogram is planned for tomorrow. (4) Smoking addiction: Encouraged abstaining from tobacco (5) Left arm pain: Etiology uncertain. Concern would be that this is anginal equivalent. However this would be very atypical and is not exertionally related. (6) Epigastric pain: Continue Protonix twice daily IV This sounds like it has been a long-term problem for the patient. Plan Other medical problems as outlined in past medical history Full code currently Lovenox for DVT prophylaxis Attestations Medical Necessity Statement*: Needs continued hospitalization for evaluation of abnormal nuclear stress test. Diagnoses Bradycardia R00.1 Hypotension I95.9 Elevated troponin R77.8 Smoking addiction F17.200 Left arm pain M79.602 Epigastric pain R10.13 Time Spent (min) 33
--- NOTE | 2022-06-13 17:38 | PM.PN ---
Subjective Subjective: Patient had a Myocardial perfusion imaging today. She was found to have a moderate area of fixed defect with a small area of reversible defect, mostly in the distribution of the left circumflex artery. She also was found to have markedly elevated transient ischemic dilatation ratio. She is complaining of mid substernal pain with no radiation. She was having left arm pain for several hours yesterday and last night. Currently it is resolved. Continues to have epigastric discomfort Medications: Medication Review Details: Current Medications Acetaminophen (Acetaminophen 325 Mg Tablet) 650 mg PO Q6H PRN PRN Reason: MILD PAIN Aminophylline (Aminophylline 25 Mg/Ml Sdv 10 Ml) 25 mg IVP Q2M PRN PRN Reason: see dose instructions Stop: 06/14/22 06:33 Last Admin: 06/13/22 08:02 Dose: 25 mg Aspirin (Aspirin 81 Mg Ec Tablet) 81 mg PO DAILY [facility] Last Admin: 06/13/22 09:25 Dose: 81 mg Enoxaparin Sodium (Enoxaparin 40 Mg/0.4 Ml Syringe) 40 mg SUBCUT Q24H [facility] Last Admin: 06/13/22 09:25 Dose: 40 mg Hydralazine HCl (Hydralazine 20 Mg/Ml Inj 1 Ml) 10 mg IVP Q4H PRN PRN Reason: HYPERTENSION Dopamine HCl/Dextrose (Intropin Drip) 400 mg in 250 mls @ 15.224 mls/hr IV CONT NAYELY; Protocol Last Admin: 06/13/22 07:36 Dose: Not Given Nitroglycerin (Nitroglycerin 0.4 Mg Sublingual Tablet) 0.4 mg SUBLINGUAL Q5M PRN PRN Reason: CHEST PAIN Stop: 06/14/22 06:33 Last Admin: 06/13/22 13:28 Dose: 0.4 mg Ondansetron HCl (Ondansetron 2 Mg/Ml Sdv 2 Ml) 4 mg IVP Q6H PRN PRN Reason: NAUSEA AND VOMITING Last Admin: 06/13/22 03:48 Dose: 4 mg Ondansetron HCl (Ondansetron 2 Mg/Ml Sdv 2 Ml) 4 mg IVP Q2M PRN PRN Reason: NAUSEA Pantoprazole Sodium (Pantoprazole 40 Mg Sdv) 40 mg IVP Q12H [facility] Last Admin: 06/13/22 09:25 Dose: 40 mg Vitals/I&O/Wt Last Vital Signs Temp 98.8 F 06/13/22 14:15 Pulse 77 06/13/22 15:18 Resp 20 H 06/13/22 14:15 BP 158/87 06/13/22 14:15 Pulse Ox 95 06/13/22 15:17 O2 Del Method 06/13/22 15:17 O2 Flow Rate 2 06/13/22 15:17 06/13/22 06/13/22 06/13/22 06:59 14:59 22:59 Intake Total 1000 / 2986.417 300 / 300 931.667 / 1231.667 Output Total 1300 / 1825 1500 / 1500 Balance -300 / 1161.417 -1200 / -1200 931.667 / -268.333 Weight last 48 hrs Weight 181 lb Weight 184 lb Weight 179 lb Physical Exam Narrative: GENERAL: The patient is alert and oriented times three. Not in any acute distress. HEENT: No significant pallor, icterus or lymphadenopathy.Oral cavity: There are no mucous membrane lesions. NECK: Trachea appears to be central. No masses noted. No JVD or thyromegaly appreciated. RESPIRATORY: Chest is symmetrical. No intercostals muscle retraction or any accessory muscle activation. There is no chest wall tenderness. Breath sounds are heard bilaterally. No rales or rhonchi heard. No evidence of any consolidation. BREASTS: Deferred. HEART: The heart sounds are normal. No S3 or S4. No significant murmurs. No pericardial rub ABDOMEN: No vessel pulsations or distention. No tenderness. No organomegaly appreciated. Bowel sounds are normally heard. : Deferred. RECTAL: Deferred. LYMPHATIC: No lymphadenopathy noted in the neck. EXTREMITIES: No edema or cyanosis. No clubbing. MUSCULOSKELETAL: No acute joint deformities or swelling SKIN: There are no significant rashes or ecchymosis NEUROPSYCHIATRIC: The patient is alert and oriented x3. Appears to be in a good mood. No tremors or rigidity noted. Urinary Catheter Management: Vernon: Cath Placed During This Visit: yes Reason for Continuing Indwelling Catheter: Accurate Measurement of Urinary Output in Critically Ill Patients Urinary Catheter Date of Insertion: 06/12/22 Urinary Catheter Time of Insertion: 07:25 Data 06/13/22 02:45 06/13/22 02:45 Micro: Echocardiogram on 06/12/2022 ?normal left ventricular size and systolic function, EF 67 %. No ?regional wall motion abnormalities. Grade I/IV diastolic ?dysfunction (abnormal relaxation filling pattern), normal to ?mildly elevated filling pressures. ?Features of aortic valve sclerosis ?Trace tricuspid valve regurgitation.? Estimated pulmonary artery ?peak systolic pressure of 31 mmHg ?There is no pericardial effusion. ?There are no intracardiac masses. ?No similar previous studies are available for comparison A&P Assessment and plan (1) Left arm pain: Most likely this is related to underlying coronary ischemia. Patient also is complaining of substernal chest pain today. Her symptoms are somewhat difficult to discern. The Myocardial perfusion imaging results were discussed with the patient and her . In view of her ongoing symptoms, in order to further evaluate her coronary status, a cardiac catheterization would be appropriate. The risk and benefits were discussed. The risk of bleeding, hematoma, vascular injury, myocardial infarction, myocardial perforation, malignant cardiac arrhythmias ,CVA, renal failure and other concomitant complications were explained in detail. Patient and the family understood this well and consented to proceed. We may schedule the test for sometime tomorrow. (2) Epigastric pain: Most likely this is unrelated to the heart. Apparently she had similar symptoms in the past. May need to look more into the umbilical and epigastric hernia or other etiologies. (3) Bradycardia: Patient has not had a recurrence of bradycardia since the hospital admission. Vasovagal reaction/ischemia are considerations. May continue on the current management for the time (4) Hypotension: Patient has not had a recurrence of hypotension. We will continue on the current measures (5) Smoking addiction: Patient strongly advised to quit smoking Plan The problems are Recently diagnosed hypertension Chronic back pain Umbilical/epigastric hernia Colon polyps Based on the results of the above test, further management decisions will be made. Female go ahead and schedule for the angiogram in the morning I may go ahead and do a lipid profile on the blood in the lab. Since she is hypertensive, started on amlodipine 2.5 mg p.o. now and daily Continue on the other measures Discussed with Dr. Feliz Attestations Medical Necessity Statement*: Patient requires continued hospital stay for close monitoring and further management Coding Level of Care Code 20725 Diagnoses Left arm pain M79.602 Epigastric pain R10.13 Bradycardia R00.1 Hypotension I95.9 Smoking addiction F17.200
[2022-06-13] MEDS: amlodipine 5 mg Tablet 2.5 MG PO (18:57)
[2022-06-13 19:32] LABS: Chol HDL Ratio 3.98 mg/dL (0.0-4.40); Cholesterol 195 mg/dL (0-200); HDL Cholesterol 49 mg/dL (60-100); LDL Cholesterol Calculated 134 mg/dL (50-129); Triglycerides 60 mg/dL (0-150); VLDL Cholestrol Calculation 12 mg/dL (0-30)
[2022-06-13] MEDS: acetaminophen 325 mg Tablet 650 MG PO (19:53)
[2022-06-14] VITALS (34 sets, daily range): BP systolic 105–165; BP diastolic 57–93; PULSE 72–90; RESP 13–29; TEMP 36.6–37.1; O2SAT 90–94
[2022-06-14 06:16] LABS: Basophils % 0.4 %; Eosinophils # 0.2 10^3/uL (0.0-0.8); Eosinophils % 1.9 %; Hematocrit 44.8 % (37.0-47.0); Hemoglobin 14.6 g/dL (11.5-15.3); Lymphocytes # 1.6 10^3/uL (0.8-4.8); Lymphocytes % 16.4 %; Mean Corpuscular HGB Conc 32.6 g/dL (30.0-36.0); Mean Corpuscular Hemoglobin 29.8 pg (28.0-34.0); Mean Corpuscular Volume 91.4 fl (81-99); Mean Platelet Volume 10.9 fL (7.4-10.4); Monocytes # 0.9 10^3/uL (0.2-0.9); Monocytes % 8.9 %; Neutrophils # 7.13 10^3/uL (1.8-7.7); Neutrophils % 72.1 %; Nucleated Red Blood Cells % 0 %; Platelet Count 237 10^3/cmm (130-400); Red Cell Distribution Width 13.2 % (12.1-15.1); White Blood Count 9.9 10^3/uL (4.0-10.0)
[2022-06-14 06:29] LABS: INR 1.01 (0.8-1.2)
[2022-06-14 06:42] LABS: Anion Gap 14.9 (5-19); Blood Urea Nitrogen 8 mg/dL (8-23); Calcium 9.1 mg/dL (8.5-10.5); Carbon Dioxide 28 mmol/L (22-29); Chloride 99 mmol/L (98-107); Glucose 103 mg/dL (65-115); Osmolality Calculated 285 mOsm/kg (285-295); Potassium 3.9 mmol/L (3.5-5.1); Sodium 138 mmol/L (136-145)
--- NOTE | 2022-06-14 07:41 | XACV_ITS ---
Exam Room: 2 Ht: 165 cm Wt: 82 kg BSA: 1.97 m2 Gender: Female : 1950 Any Known Allergies: No known allergies Exam Priority: Routine Procedure(s): Procedure Description: Diagnostic procedure Procedure Description: PCI procedure Procedure Description: Left Heart Catheterization Procedure Description: Left ventriculography Procedure Description: PTCA Procedure Description: Coronary Angiography Jerod PATEL; Diagnostic Cath Status: Elective Diagnostic Findings * The left main is a medium caliber vessel with no significant stenotic lesions. * The left anterior descending artery is a medium to large caliber vessel which appears to wrap around the LV apex. It gives off a relatively small caliber diagonal vessel which was found to have a high-grade lesion proximally. Then the artery appears to trifurcated. Mild diffuse disease was noted in the distal vessel. The mid and the distal distal LAD where found to have mild diffuse intimal irregularities.. * The left circumflex artery is a small to medium caliber vessel with minimal intimal irregularities. No significant stenotic lesions were noted. * The right coronary artery is a medium caliber dominant vessel which was found to have proximal diffuse irregular narrowing of around 20 to 30%. No significant stenotic lesions were noted. The PDA and the PLV branches also were found to have very minimal intimal irregularities. PCI Status: Urgent PCI LVEF Assessed: Yes PCI Indication: New Onset Angina <= 2 months Interventional Findings * Culprit lesion is a very tiny first diagonal branch with a 99% stenosis. It underwent balloon angioplasty with a 2 mm balloon. Good angiographic result with good distal flow. No stent placed. Decision for PCI with Surgical Consult: No PCI for Multi-vessel Disease: No Conclusions 1. 71-year-old white female with. 2. 72-year-old white female with a history of smoking abuse, presenting with complaints of epigastric pain, chest pain and left arm pain. She had a Myocardial perfusion imaging which revealed areas of fixed defect with reversible defect in the distribution of the left circumflex artery. In view of the patient's ongoing symptoms, in order to further evaluate her coronary status, a cardiac catheterization was recommended. She underwent left heart catheterization with left and right coronary angiogram today. The findings are as follows. 3. No significant obstructive lesions in the left main. The left anterior descending artery has minimal intimal irregularities in the proximal to mid segment. The second, relatively small caliber diagonal branch was found to have a high-grade lesion proximally. Minimal intimal irregularities in the left circumflex artery. 20 to 30% diffuse irregular narrowing in the proximal to mid RCA. Based on the angiogram findings, it was thought to be appropriate to consider PCI of the diagonal lesion. The vessel may not be ideal for stent placement. Plain old balloon angioplasty might be appropriate.. Diagnostic RX Recommendation: PCI w/o planned CABG Ventriculography Ejection Fraction: 55.0 % LV EDP: 20 mmHg Left Ventriculography Findings: * The LV gram was performed in the [place] projection. The LV cavity appears to be normal size. LV ejection fraction was around 55%. No filling defects were noted. No significant mitral valve prolapse or mitral regurgitation the LVEDP was 20 mmHg. Pressures Phase:Rest AO : 105 / 71 ( 88 ) @ 1:24:00 PM 104 / 73 ( 89 ) @ 1:28:00 PM 134 / 74 ( 101 ) @ 1:33:00 PM 135 / 75 ( 102 ) @ 1:33:00 PM 144 / 80 ( 104 ) @ 1:46:00 PM LV : -3 / -6 / -6 @ 1:31:00 PM 137 / 0 / 19 @ 1:32:00 PM 138 / 1 / 24 @ 1:33:00 PM 139 / 2 / 24 @ 1:33:00 PM Valves Phase:DefaultPhase AV : 6.0 @ 1:58:52 PM AV Mean Gradient: 10.0 @ 1:58:52 PM 10.0 @ 1:58:52 PM Clinical Evaluation EBL: 5mL-10mL Procedural Details Procedure Consent Obtained. Pre-Procedure Time Out. Identified patient by full name and date of as verbalized by the patient/guarantor. Does the consent match the physician's order: Yes. Accurate & Complete Informed Consent: Yes. Inpatient/Outpatient History & Physical on Chart: Yes. If H&P is completed, is and addenduem needed: No. Visualize and Verify Site with Patient/Guarantor: N/A. Relevant Radiology Images available: Yes. The risks, benefits, and alternatives of sedation and/or procedure were discussed by physician. The patient agrees to continue. Procedure started. [facility] Clinical Fraility Score: 3: Managing Well. Well Flow Operator Indications: New Onset Angina/Abnormal stress test. Chest Pain Symptom Assessment: Typical Angina Symptoms. Cardiovascular Instability: No. Correct patient, site and procedure confirmed by cath team. PERRLA. Strong, equal hand superintendent pressure bilaterally. Lungs clear x 5 lobes. IV Site on Arrival: 18 gauge in the right anticubital. IV Fluids: 0.9% NaCl at KVO. 100 mL infused prior to lab tech. Pre Procedural Pulses: bilateral radial was 3+. Oxygen started at 2liters/min via nasal canula. right groin was prepped with chloroprep then draped in the usual sterile fashion. right radial was prepped with chloroprep then draped in the usual sterile fashion. Physician notified. Baseline sample Acquired. HR: 80 BPM. Patient's family in the lab tech waiting room. Dr. Newsome will update at the completion of the procedure. Equipment: 6F - Radial. Cardiac Cath Pack. ACIST Manifold Kit Model BT 2000. Heparinized Saline (2 units/mL), 1000 mL bag. Physician arrived. Physician scrubbed in. Immediate Pre-Procedure Time Out. Correct Patient: Yes; Correct Procedure: Yes; Correct Site: Yes; Correct Patient Position: Yes; Correct Supplies: Yes; Dried Flammable Prep: Yes; Blood Products Available: N/A;. Lidocaine 1% infiltrated to the right radial. Arterial access obtained. A 5 andorran Julio catheter in over the exchange J wire. Multiple views taken of left coronary artery. Catheter removed over the exchange J wire. A 5 andorran JR4 catheter in over the exchange J wire. Multiple views taken of right coronary artery. Catheter removed over the exchange wire. EDP Sample taken: LV -4/-7,-7; HR: 82 BPM; SpO2: 95%. EDP Sample taken: LV 137/-1,19; HR: 86 BPM; SpO2: 95%. LV gram performed in [place] @ 10 mL/second for a total of 30 mL. EDP Sample taken: LV 138/1,24; HR: 86 BPM; SpO2: 95%. Pullback taken: LV 139/2,24; AO 134/74(101); Mean: 10mmHg, Peak to Peak: 6mmHg, SEP: 21sec/min; HR: 84 BPM; SpO2: 94%. Catheter removed over the exchange J wire. Dr. Newsome scrubbed out. Dr. Edmond here. Dr. Edmond scrubbed in to perform intervention. 6 andorran XB 3 guide catheter was inserted over the wire. Otis guidewire was advanced through the guide catheter to lesion in the mid 1st diaganol. Balloon inserted to lesion in the diaganol. Inflation number : 1 A AB MINI TREK 2.00X12 RX BALLOON was prepped and advanced across the mid 1st Diag , then inflated to 8 MAIKEL for 0:20 seconds. Inflation number: 2 The AB MINI TREK 2.00X12 RX BALLOON was reinflated across the mid 1st Diag, to 8 MAIKEL for 0:20 seconds. Results checked. Balloon out. Catheter and wire removed. A TR Band was successful obtaining hemostatsis at the Right Radial artery insertion site. Post Procedure: Pulses reassessed and unchanged. PERRLA. Strong, equal hand superintendent pressure bilaterally. No VTE prophylaxis required. Medication's Wasted: Lidocaine 1% = 2 mL. Medication's Wasted: Nitro = 50 mg. Medication's Wasted: Heparin = 1000 u. Medication's Wasted: Other = Fentanyl 25 mcg. Total IV fluids: 305 mL. Post-op diagnosis: Obstructive CAD. Complications: none. Estimated blood loss: 5mL-10mL. Responsiveness - Normal response to verbal stimuli; alert and oriented, PERRLA. Airway - Unaffected, no intervention required; spontaneous ventilation. Circulation: W/N/L, pulses unchanged. Nausea/Vomiting: No. Procedure completed. Patient transferred by wheelchair to 1st floor. Vital chart was stopped. Access Site Site: Right Radial artery Sheath Size: 6 Fr Hemostasis Method: TR Band Hemostasis Success: Successful Procedure Medications Start: 1:16 PM Stop: 1:16 PM Medication: Versed Amount: 1 mg Route: I.V. Start: 1:16 PM Stop: 1:16 PM Medication: Fentanyl Amount: 25 mcg Route: I.V. Start: 1:16 PM Stop: 1:16 PM Medication: 0.9% Saline Amount: 250 ml Route: I.V. bolus Start: 1:20 PM Stop: 1:20 PM Medication: Verapamil Amount: 5 mg Route: I.A. Start: 1:25 PM Stop: 1:25 PM Medication: Heparin Amount: 5000 units Route: I.V. Start: 1:42 PM Stop: 1:42 PM Medication: Versed Amount: 1 mg Route: I.V. Start: 1:50 PM Stop: 1:50 PM Medication: Fentanyl Amount: 50 mcg Route: I.V. I, the attending physician, have reviewed and verified all procedure medications. Yes, all medications given per verbal order History/Risk Factors Hypertension: Yes Dyslipidemia: No Peripheral Arterial Disease (PAD): No Myocardial Infarction (NE): No Obesity: No Renal Disease: No Tobacco Use: Current/Recent(w/in 1 year) Prior Interventions PCI: No CABG: No Valve Surgery: No Report Signatures Diagnostic Workflow Finalized by Dr Mag Newsome MD [facility] on 06/15/2022 04:07 PM Interventional Workflow Finalized by Dr. Antoine Edmond MD on 06/14/2022 02:03 PM
--- NOTE | 2022-06-14 08:17 | P.PN_ITS ---
Subjective Subjective: Overnight events Hemodynamic stable No active chest pain Pleasant and cooperative Resting comfortably in her bed Vitals/I&O/Wt Last Vital Signs Temp 97.8 F 06/14/22 03:38 Pulse 78 06/14/22 06:00 Resp 22 H 06/14/22 06:00 BP 151/86 06/14/22 06:00 Pulse Ox 91 06/14/22 06:00 O2 Del Method 06/13/22 20:00 O2 Flow Rate 2 06/13/22 20:00 06/13/22 06/14/22 06/14/22 22:59 06:59 14:59 Intake Total 1171.667 / 1471.667 Output Total 2050 / 3550 700 / 4250 Balance -878.333 / -2078.333 -700 / -2778.333 Weight last 48 hrs Weight 82.191 kg Weight 82.1 kg Weight 83.461 kg Physical Exam Narrative: Awake and alert Morbidly obese Resting comfortably in her bed Hemodynamically stable Currently on 2 L Looks dry GCS 15 Nonfocal neuro exam S1, S2 No audible stridor or wheezing Urinary Catheter Management: Vernon: Cath Placed During This Visit: yes Reason for Continuing Indwelling Catheter: Accurate Measurement of Urinary Output in Critically Ill Patients Urinary Catheter Date of Insertion: 06/12/22 Urinary Catheter Time of Insertion: 07:25 Data 06/14/22 06:07 06/14/22 06:07 A&P Assessment and plan (1) Elevated troponin: (2) Smoking addiction: (3) Hypotension: (4) Bradycardia: (5) Epigastric pain: (6) Left arm pain: (7) Hypertension: (8) Colon polyp: (9) Diverticulosis: Plan Bradycardic episode associated hypertension she was given metoprolol AV racelia blocking agent on hold Plan for angiogram today to rule out coronary ischemia EF is preserved No wall motion abnormality noted Dr. Garcia on board Hypertension: Patient blood pressure is running high now, added amlodipine, I will add lisinopril as well Smoking addiction: Patient has been counseled extensively throughout h ospitalization Left arm pain: Resolved Epigastric pain: She is on Protonix Full code DVT prophylaxis Lovenox N.p.o. for angiogram We will follow along with Dr. Newsome She can be transferred out of ICU to [facility] No leukocytosis hemoglobin stable Normal BMP Repeat labs for tomorrow after angiogram TSH is 2.5 Attestations Medical Necessity Statement*: Awaiting angiogram Diagnoses Elevated troponin R77.8 Smoking addiction F17.200 Hypotension I95.9 Bradycardia R00.1 Epigastric pain R10.13 Left arm pain M79.602 Hypertension I10 Colon polyp K63.5 Diverticulosis K57.90
[2022-06-14] MEDS: amlodipine 5 mg Tablet 2.5 MG PO (09:15)
[2022-06-14] MEDS: pantoprazole 40 mg SDV IVP ×2 (09:16→21:12)
[2022-06-14] MEDS: aspirin 81 mg EC Tablet PO (09:16)
[2022-06-14] MEDS: lisinopril 10 mg Tablet PO ×2 (09:16→09:23)
[2022-06-14] MEDS: sodium chloride 0.9% 1,000 ML 50 ML IV (09:17)
[2022-06-14] MEDS: diphenhydrAMINE 50 mg Capsule PO (11:32)
--- NOTE | 2022-06-14 12:51 | PC.NURSE ---
Patient in care of receiver/laborer staff at 1251.
--- NOTE | 2022-06-14 13:45 | P.PN_ITS ---
Subjective Subjective: The patient is feeling better today. Has not had any left arm pain. Continues to have some epigastric discomfort off and on. No shortness of breath. Vitals are stable. Medications: Medication Review Details: Current Medications Acetaminophen (Acetaminophen 325 Mg Tablet) 650 mg PO Q6H PRN PRN Reason: MILD PAIN Last Admin: 06/13/22 19:53 Dose: 650 mg Amlodipine Besylate (Amlodipine 5 Mg Tablet) 2.5 mg PO DAILY [facility] Last Admin: 06/14/22 09:15 Dose: 2.5 mg Aspirin (Aspirin 81 Mg Ec Tablet) 81 mg PO DAILY [facility] Last Admin: 06/14/22 09:16 Dose: 81 mg Chlorthalidone (Chlorthalidone 25 Mg Tablet) 12.5 mg PO DAILY [facility] Enoxaparin Sodium (Enoxaparin 40 Mg/0.4 Ml Syringe) 40 mg SUBCUT Q24H [facility] Last Admin: 06/14/22 09:32 Dose: Not Given Hydralazine HCl (Hydralazine 20 Mg/Ml Inj 1 Ml) 10 mg IVP Q4H PRN PRN Reason: HYPERTENSION Dopamine HCl/Dextrose (Intropin Drip) 400 mg in 250 mls @ 15.224 mls/hr IV CONT [facility]; Protocol Last Admin: 06/14/22 09:32 Dose: Not Given Sodium Chloride (Sodium Chloride 0.9%) 1,000 mls @ 50 mls/hr IV .Q20H ONE Stop: 06/14/22 14:42 Last Admin: 06/14/22 09:17 Dose: 50 mls/hr Lisinopril (Lisinopril 10 Mg Tablet) 10 mg PO DAILY [facility] Last Admin: 06/14/22 09:23 Dose: 10 mg Ondansetron HCl (Ondansetron 2 Mg/Ml Sdv 2 Ml) 4 mg IVP Q6H PRN PRN Reason: NAUSEA AND VOMITING Last Admin: 06/13/22 03:48 Dose: 4 mg Ondansetron HCl (Ondansetron 2 Mg/Ml Sdv 2 Ml) 4 mg IVP Q2M PRN PRN Reason: NAUSEA Pantoprazole Sodium (Pantoprazole 40 Mg Sdv) 40 mg IVP Q12H [facility] Last Admin: 06/14/22 09:16 Dose: 40 mg Vitals/I&O/Wt Last Vital Signs Temp 98.7 F 06/14/22 08:00 Pulse 83 06/14/22 12:00 Resp 29 H 06/14/22 12:00 BP 116/81 06/14/22 12:00 Pulse Ox 90 06/14/22 11:00 O2 Del Method 06/14/22 11:00 O2 Flow Rate 2 06/14/22 11:00 06/13/22 06/14/22 06/14/22 22:59 06:59 14:59 Intake Total 1171.667 / 1471.667 Output Total 2050 / 3550 700 / 4250 Balance -878.333 / -2078.333 -700 / -2778.333 Weight last 48 hrs Weight 181 lb 3.2 oz Weight 181 lb Physical Exam Narrative: GENERAL: The patient is alert and oriented times three. Not in any acute distress. HEENT: No significant pallor, icterus or lymphadenopathy.Oral cavity: There are no mucous membrane lesions. NECK: Trachea appears to be central. No masses noted. No JVD or thyromegaly appreciated. RESPIRATORY: Chest is symmetrical. No intercostals muscle retraction or any accessory muscle activation. There is no chest wall tenderness. Breath sounds are heard bilaterally. No rales or rhonchi heard. No evidence of any consol idation. BREASTS: Deferred. HEART: The heart sounds are normal. No S3 or S4. No significant murmurs. No pericardial rub ABDOMEN: vague epigastric tenderness : Deferred. RECTAL: Deferred. LYMPHATIC: No lymphadenopathy noted in the neck. EXTREMITIES: No edema or cyanosis. No clubbing. MUSCULOSKELETAL: No acute joint deformities or swelling SKIN: There are no significant rashes or ecchymosis NEUROPSYCHIATRIC: The patient is alert and oriented x3. Appears to be in a good mood. No tremors or rigidity noted. Urinary Catheter Management: Evrnon: Cath Placed During This Visit: yes Reason for Continuing Indwelling Catheter: Accurate Measurement of Urinary Output in Critically Ill Patients Urinary Catheter Date of Insertion: 06/12/22 Urinary Catheter Time of Insertion: 07:25 Data 06/14/22 06:07 06/14/22 06:07 Other Labs: Laboratory Last Values WBC 9.9 10^3/uL (4.0-10.0) 06/14/22 06:07 RBC 4.90 10^6/uL (4.1-5.3) 06/14/22 06:07 Hgb 14.6 g/dL (11.5-15.3) 06/14/22 06:07 Hct 44.8 % (37.0-47.0) 06/14/22 06:07 MCV 91.4 fl (81-99) 06/14/22 06:07 MCH 29.8 pg (28.0-34.0) 06/14/22 06:07 MCHC 32.6 g/dL (30.0-36.0) 06/14/22 06:07 RDW 13.2 % (12.1-15.1) 06/14/22 06:07 Plt Count 237 10^3/cmm (130-400) 06/14/22 06:07 MPV 10.9 fL (7.4-10.4) H 06/14/22 06:07 Neut % (Auto) 72.1 % 06/14/22 06:07 Lymph % (Auto) 16.4 % 06/14/22 06:07 [place] % (Auto) 8.9 % 06/14/22 06:07 Eos % (Auto) 1.9 % 06/14/22 06:07 Baso % (Auto) 0.4 % 06/14/22 06:07 Neut # (Auto) 7.13 10^3/uL (1.8-7.7) 06/14/22 06:07 Lymph # (Auto) 1.6 10^3/uL (0.8-4.8) 06/14/22 06:07 [place] # (Auto) 0.9 10^3/uL (0.2-0.9) 06/14/22 06:07 Eos # (Auto) 0.2 10^3/uL (0.0-0.8) 06/14/22 06:07 Baso # (Auto) 0.0 10^3/uL (0.0-0.1) 06/14/22 06:07 Nucleated RBC % (auto) 0 % 06/14/22 06:07 Nucleated RBCs # 0.0 /100WBC 06/14/22 06:07 PT 13.60 SECONDS (12.1-14.9) 06/14/22 06:07 INR 1.01 (0.8-1.2) 06/14/22 06:07 Sodium 138 mmol/L (136-145) 06/14/22 06:07 Potassium 3.9 mmol/L (3.5-5.1) 06/14/22 06:07 Chloride 99 mmol/L (98-107) 06/14/22 06:07 Carbon Dioxide 28 mmol/L (22-29) 06/14/22 06:07 Anion Gap 14.9 (5-19) 06/14/22 06:07 BUN 8 mg/dL (8-23) 06/14/22 06:07 Creatinine 0.5 mg/dL (0.5-0.9) 06/14/22 06:07 GFR Calculation 122.0 mL/min (90-130) 06/14/22 06:07 Glucose 103 mg/dL (65-115) 06/14/22 06:07 Calculated Osmolality 285 mOsm/kg (285-295) 06/14/22 06:07 Calcium 9.1 mg/dL (8.5-10.5) 06/14/22 06:07 Magnesium 1.9 mg/dL (1.7-2.3) 06/13/22 02:45 Total Bilirubin 0.5 mg/dL (0.15-1.2) 06/13/22 02:45 AST 399 U/L (0-32) H 06/13/22 02:45 ALT 470 U/L (0-33) H 06/13/22 02:45 Alkaline Phosphatase 133 U/L (35-105) H 06/13/22 02:45 Troponin T Baseline 15 ng/L (0-10) H 06/12/22 05:30 Troponin T 120 Minute 16.18 ng/L (0-10) H 06/12/22 07:31 Delta Troponin T 1.18 ABS# (0-10) 06/12/22 07:31 Troponin T Hi Sens 6Hr 25.20 ng/L (0-10) H 06/12/22 11:34 Troponin T Hi Sens 6Hr Delta 10.20 ng/L (0-12) 06/12/22 11:34 Total Protein 6.1 g/dL (6.6-8.7) L 06/13/22 02:45 Albumin 3.5 g/dL (3.5-5.2) 06/13/22 02:45 Globulin 2.6 g/dL (1.3-4.6) 06/13/22 02:45 Triglycerides 60 mg/dL (0-150) 06/13/22 18:22 Cholesterol 195 mg/dL (0-200) 06/13/22 18:22 LDL Cholesterol, Calc 134 mg/dL (50-129) H 06/13/22 18:22 Total VLDL Cholesterol 12 mg/dL (0-30) 06/13/22 18:22 HDL Cholesterol 49 mg/dL (60-100) L 06/13/22 18: Cholesterol/HDL Ratio 3.98 mg/dL (0.0-4.40) 06/13/22 18:22 Lipase 30 U/L (13-60) 06/13/22 02:45 TSH 2.52 uIU/mL (0.27-4.20) 06/12/22 05:30 Hepatitis A IgM Ab Non-reactive (Nonreactive) 06/13/22 02:42 Hep Bs Antigen Non-reactive (Nonreactive) 06/13/22 02:42 Hep B Core IgM Ab Non-reactive (Nonreactive) 06/13/22 02:42 Hepatitis C Antibody Non-reactive (Nonreactive) 06/13/22 02:42 A&P Assessment and plan (1) Left arm pain: Most likely this is related to underlying coronary ischemia. Patient also is complaining of substernal chest pain today. Her symptoms are somewhat difficult to discern. The Myocardial perfusion imaging results were discussed with the patient and her . In view of her ongoing symptoms, in order to further evaluate her coronary status, a cardiac catheterization would be appropriate. The risk and benefits were discussed. The risk of bleeding, hematoma, vascular injury, myocardial infarction, myocardial perforation, malignant cardiac arrhythmias ,CVA, renal failure and other concomitant complications were explained in detail. Patient and the family understood this well and consented to proceed. She is scheduled to have the angiogram today afternoon. We will continue on the current medications (2) Epigastric pain: Most likely this is unrelated to the heart. Apparently she had similar symptoms in the past. May need to look more into the umbilical and epigastric hernia or other etiologies. (3) Bradycardia: Patient has not had a recurrence of bradycardia since the hospital admission. Vasovagal reaction/ischemia are considerations. May continue on the current management for the time (4) Hypotension: Patient has not had a recurrence of hypotension. We will continue on the current measures (5) Smoking addiction: Patient strongly advised to quit smoking Plan The problems are Recently diagnosed hypertension Chronic back pain Umbilical/epigastric hernia Colon polyps Based on the results of the cardiac catheterization, further recommendations will be made. Attestations Medical Necessity Statement*: Patient requires continued hospital stay for close monitoring and further management Coding Level of Care Code Acute Code for Chg Fwd Diagnoses Left arm pain M79.602 Epigastric pain R10.13 Bradycardia R00.1 Hypotension I95.9 Smoking addiction F17.200
--- NOTE | 2022-06-14 13:48 | W.PM.OPSUD ---
Surgery/Procedure H&P Update DATE OF PROCEDURE: June 14, 2022 DATE H&P PERFORMED: 06/13/22 H&P UPDATE INFORMATION: I have reviewed H&P completed within last 30 days, I have examined patient prior to procedure and No changes to prior documentation PREOP DIAGNOSIS: Unstable angina PRIMARY INDICATION FOR PROCEDURE: Patient with new onset of left arm pain, chest pain. Abnormal Myocardial perfusion imaging PLANNED PROCEDURE: Left heart catheterization with left and right coronary angiogram, LV angiogram and possible PCI PATIENT REASSESSED PRIOR TO SEDATION, WITH NO CHANGE NOTED: Yes PHYSICAL EXAM: alert, oriented x 3, clear to auscultation bilaterally and regular rate & rhythm AIRWAY EVAL/ANESTHESIA PLAN: normal airway, see other exam findings, ASA III, Monitored Anesthesia, Local Anesthesia, Risks, benefits & alternatives of sedation and/or procedure discussed and Patient agrees to continue as planned
[2022-06-14] MEDS: sodium chloride 0.9% 1,000 ML 100 ML IV (14:20)
[2022-06-14] MEDS: clopidogrel 75 mg Tablet PO (21:12)
[2022-06-15] VITALS (10 sets, daily range): BP systolic 110–141; BP diastolic 57–80; PULSE 58–78; RESP 14–27; TEMP 36.8–36.9; O2SAT 92–95
--- NOTE | 2022-06-15 07:40 | PM.DCS ---
Discharge Providers Date of Admission: 06/13/22 17:37 Date of Discharge: June 14, 2022 Attending Provider at Admission: Chriss Feliz MD Attending Provider at Discharge: Juan Chavez MD Primary Care Provider: STERLING Luna Diagnoses at Discharge Discharge Diagnosis (1) Left arm pain: Status: Acute (2) Epigastric pain: Status: Acute (3) Bradycardia: Status: Acute (4) Hypotension: Status: Acute (5) Smoking addiction: Status: Acute Reason for Visit Reason for Visit: pain in left arm/shoulder, nausea Hospital Course Hospital Course Very pleasant 71-year-old female who was admitted for episode of bradycardia and hypotension which occurred after she was given metoprolol. There was concern for coronary ischemia on stress test hence cardiology was consulted, status post coronary angiogram, patient had a 90% blockage of one of the diagonal branches status post angioplasty. Hemodynamic remained stable, she will follow-up with Dr. Newsome outpatient Preserved ejection fraction. CT abdomen pelvis and chest did not show any signs of aortic dissection or PE. Echo showed preserved ejection fraction. Patient is being discharged with stable vitals, Physical Exam Narrative: Pleasant and cooperative S1, S2 GCS 15 Doing well on room air Urinary Catheter Management: Vernon: Cath Placed During This Visit: yes Reason for Continuing Indwelling Catheter: Accurate Measurement of Urinary Output in Critically Ill Patients Urinary Catheter Date of Insertion: 06/12/22 Urinary Catheter Time of Insertion: 07:25 Discharge Data Studies Completed and Pending Completed Studies During Hospitalization Category Date Time Status CT ang ches abdpel [id number] Stat Cat Scan 06/12/22 06:27 Completed Sestamibi Stress Test Request Routine Exams 06/12/22 14:48 Completed XR chest 1V portable [id number] Stat Exams 06/12/22 05:26 Completed NM janae perf SPECT r/s* [id number] Routine Nuc Med 06/13/22 08:00 Completed US echo complete [CV. echo complete* [id number]] Urgent Ultrasound 06/12/22 09:42 Completed Pending at discharge Category Date Time Status [employer]LECT[employer] DIRECT[employer] request for service Routine Exams 06/14/22 07:41 Taken Radiology Impressions Chest X-Ray 06/12/22 05:26 IMPRESSION: No acute findings. Chest/Abdomen/Pelvis CTA 06/12/22 06:27 IMPRESSION: 1. No thoracic aortic dissection or aneurysm. 2. No pulmonary embolism. 3. Mild centrilobular emphysema. COMMENTS: In the absence of a history or active diagnosis of lung cancer, it is recommended that this patient with emphysema be evaluated for enrollment in a low dose CT lung cancer screening program. Laboratory Results WBC 9.9 10^3/uL (4.0-10.0) 06/14/22 06:07 RBC 4.90 10^6/uL (4.1-5.3) 06/14/22 06:07 Hgb 14.6 g/dL (11.5-15.3) 06/14/22 06:07 Hct 44.8 % (37.0-47.0) 06/14/22 06:07 MCV 91.4 fl (81-99) 06/14/22 06:07 MCH 29.8 pg (28.0-34.0) 06/14/22 06:07 MCHC 32.6 g/dL (30.0-36.0) 06/14/22 06:07 RDW 13.2 % (12.1-15.1) 06/14/22 06:07 Plt Count 237 10^3/cmm (130-400) 06/14/22 06:07 MPV 10.9 fL (7.4-10.4) H 06/14/22 06:07 Neut % (Auto) 72.1 % 06/14/22 06:07 Lymph % (Auto) 16.4 % 06/14/22 06:07 [place] % (Auto) 8.9 % 06/14/22 06:07 Eos % (Auto) 1.9 % 06/14/22 06:07 Baso % (Auto) 0.4 % 06/14/22 06:07 Neut # (Auto) 7.13 10^3/uL (1.8-7.7) 06/14/22 06:07 Lymph # (Auto) 1.6 10^3/uL (0.8-4.8) 06/14/22 06:07 [place] # (Auto) 0.9 10^3/uL (0.2-0.9) 06/14/22 06:07 Eos # (Auto) 0.2 10^3/uL (0.0-0.8) 06/14/22 06:07 Baso # (Auto) 0.0 10^3/uL (0.0-0.1) 06/14/22 06:07 Nucleated RBC % (auto) 0 % 06/14/22 06:07 Nucleated RBCs # 0.0 /100WBC 06/14/22 06:07 PT 13.60 SECONDS (12.1-14.9) 06/14/22 06:07 INR 1.01 (0.8-1.2) 06/14/22 06:07 Sodium 138 mmol/L (136-145) 06/14/22 06:07 Potassium 3.9 mmol/L (3.5-5.1) 06/14/22 06:07 Chloride 99 mmol/L (98-107) 06/14/22 06:07 Carbon Dioxide 28 mmol/L (22-29) 06/14/22 06:07 Anion Gap 14.9 (5-19) 06/14/22 06:07 BUN 8 mg/dL (8-23) 06/14/22 06:07 Creatinine 0.5 mg/dL (0.5-0.9) 06/14/22 06:07 GFR Calculation 122.0 mL/min (90-130) 06/14/22 06:07 Glucose 103 mg/dL (65-115) 06/14/22 06:07 Calculated Osmolality 285 mOsm/kg (285-295) 06/14/22 06:07 Calcium 9.1 mg/dL (8.5-10.5) 06/14/22 06:07 Magnesium 1.9 mg/dL (1.7-2.3) 06/13/22 02:45 Total Bilirubin 0.5 mg/dL (0.15-1.2) 06/13/22 02:45 AST 399 U/L (0-32) H 06/13/22 02:45 ALT 470 U/L (0-33) H 06/13/22 02:45 Alkaline Phosphatase 133 U/L (35-105) H 06/13/22 02:45 Troponin T Baseline 15 ng/L (0-10) H 06/12/22 05:30 Troponin T 120 Minute 16.18 ng/L (0-10) H 06/12/22 07:31 Delta Troponin T 1.18 ABS# (0-10) 06/12/22 07:31 Troponin T Hi Sens 6Hr 25.20 ng/L (0-10) H 06/12/22 11:34 Troponin T Hi Sens 6Hr Delta 10.20 ng/L (0-12) 06/12/22 11:34 Total Protein 6.1 g/dL (6.6-8.7) L 06/13/22 02:45 Albumin 3.5 g/dL (3.5-5.2) 06/13/22 02:45 Globulin 2.6 g/dL (1.3-4.6) 06/13/22 02:45 Triglycerides 60 mg/dL (0-150) 06/13/22 18:22 Cholesterol 195 mg/dL (0-200) 06/13/22 18:22 LDL Cholesterol, Calc 134 mg/dL (50-129) H 06/13/22 18:22 Total VLDL Cholesterol 12 mg/dL (0-30) 06/13/22 18:22 HDL Cholesterol 49 mg/dL (60-100) L 06/13/22 18:22 Cholesterol/HDL Ratio 3.98 mg/dL (0.0-4.40) 06/13/22 18:22 Lipase 30 U/L (13-60) 06/13/22 02:45 TSH 2.52 uIU/mL (0.27-4.20) 06/12/22 05:30 Hepatitis A IgM Ab Non-reactive (Nonreactive) 06/13/22 02:42 Hep Bs Antigen Non-reactive (Nonreactive) 06/13/22 02:42 Hep B Core IgM Ab Non-reactive (Nonreactive) 06/13/22 02:42 Hepatitis C Antibody Non-reactive (Nonreactive) 06/13/22 02:42 Vitals Last Vital Signs Temp 98.3 F 06/14/22 16:00 Pulse 79 06/14/22 18:00 Resp 29 H 06/14/22 18:00 BP 126/73 06/14/22 18:00 Pulse Ox 92 06/14/22 18:00 O2 Del Method 06/14/22 18:00 O2 Flow Rate 2 06/14/22 11:00 Discharge Plan Discharge Patient Disposition: Home Condition: Stable Prescriptions: New amlodipine 5 mg Tablet 5 mg PO DAILY Qty: 60 0RF lisinopril 10 mg Tablet 10 mg PO DAILY Qty: 30 0RF Plavix 75 mg tablet 75 mg PO DAILY Qty: 60 4RF atorvastatin 20 mg tablet 20 mg PO DAILY Qty: 60 2RF Continued Nitrostat 0.4 mg Tablet, Sublingual 0.4 mg SUBLINGUAL Q5M PRN (Reason: Chest Pain) Rx Instructions: do not exceed 3 doses per episode Ventolin HFA 90 mcg/actuation Hfa Aerosol Inhaler 2 puff INHALATION QID PRN (Reason: Shortness Of Breath) aspirin 81 mg Tablet,Delayed Release (Dr/Ec) 81 mg PO DAILY Qty: 90 4RF Discontinued metoprolol tartrate 25 mg tablet 25 mg PO BID ibuprofen 200 mg Tablet 400 mg PO Q6H PRN (Reason: Pain) Discharge Orders: Discharge Order (Routine); Ordered 06/15/22 Ordered By: Juan Chavez Referrals: Angela Lira FNP [Nurse Practitioner] - 2 weeks Brito,STERLING Murrell [Primary Care Provider] - Patient Instructions: Opioid Safety Discharge Attestations Time Spent in Discharge Care*: less than 30 min Quality Metrics Clinical Quality Measures [ No reported AMI, CVA or VTE this stay] Coding Level of Care Code Acute Code for Chg Fwd Diagnoses Left arm pain M79.602 Epigastric pain R10.13 Bradycardia R00.1 Hypotension I95.9 Smoking addiction F17.200
--- NOTE | 2022-06-15 08:04 | PC.NURSE ---
All D/C meds educated to patient, patient signed D/C form
--- NOTE | 2022-06-15 08:54 | PC.NURSE ---
IVs removed, Right wrist TR band site clean dry intact covered with [employer] derm. patient transported home by
== END 2022-06-15 08:55 | disposition home or self-care (01) | DRG 251 ==
LOC: ER 07:17 → ICU 08:31
PROVIDERS: Emergency Medicine; Internal Medicine Cardiovascular Disease; Admitting Provider Internal Medicine; Emergency Provider Family Medicine; PCP Nurse Practitioner Family; Visit Provider Internal Medicine
PROC: 02703ZZ Dilation of Coronary Artery, One Artery, Percutaneous Approach (ICD-10-PCS; principal; 2022-06-14 13:00)
DX: I25.119 Atherosclerotic heart disease of native coronary artery with unspecified angina pectoris (principal); I95.9 Hypotension, unspecified; F17.200 Nicotine dependence, unspecified, uncomplicated; G89.29 Other chronic pain; M54.50 Low back pain, unspecified; Z82.49 Family history of ischemic heart disease and other diseases of the circulatory system; I10 Essential (primary) hypertension; I25.9 Chronic ischemic heart disease, unspecified; K57.90 Diverticulosis of intestine, part unspecified, without perforation or abscess without bleeding; Z79.82 Long term (current) use of aspirin
CPT/HCPCS: 36415; 51702; 71045; 71275; 74174; 78452; 80048; 80053; 80061; 80074; 83690; 83735; 84443; 84484; 85025; 85610; 92920; 93005; 93017; 93306; 93458; 96372; 96374; 96375; 96376; 99152; 99153; 99285; A9500; C1725; C1769; C1887; C1894; C9113; G0378; J0280; J0360; J1265; J1644; J1650; J2250; J2270; J2405; J2550; J2785; J3010; J3490; J7030; J7040; Q0163; Q9967

== ENCOUNTER → 2022-07-01 09:13 | Outpatient (BNVA) | payer MEDICARE, OTHER, SELFPAY | PROVIDERS: PCP Nurse Practitioner Family; Visit Provider Nurse Practitioner Family | DX: I25.10 Atherosclerotic heart disease of native coronary artery without angina pectoris (principal); F17.200 Nicotine dependence, unspecified, uncomplicated; I10 Essential (primary) hypertension; Z79.82 Long term (current) use of aspirin | CPT/HCPCS: 80053; 99214 ==

== ENCOUNTER → 2022-08-06 10:41 | Outpatient (BNVA) | payer MEDICARE, OTHER, SELFPAY | PROVIDERS: PCP Nurse Practitioner Family; Visit Provider Internal Medicine Cardiovascular Disease | DX: I25.10 Atherosclerotic heart disease of native coronary artery without angina pectoris (principal); R04.0 Epistaxis; R77.8 Other specified abnormalities of plasma proteins; I10 Essential (primary) hypertension; F17.200 Nicotine dependence, unspecified, uncomplicated | CPT/HCPCS: 99213; 99214 ==

== ENCOUNTER 2022-10-10 15:49 | Outpatient (RCR) | payer MEDICARE, OTHER, SELFPAY | END 2022-11-04 23:59 | disposition home or self-care (01) | LOC: CR 15:49 | PROVIDERS: PCP Nurse Practitioner Family; Referring Provider Internal Medicine Cardiovascular Disease; Visit Provider Internal Medicine Cardiovascular Disease | DX: I25.10 Atherosclerotic heart disease of native coronary artery without angina pectoris (principal) | CPT/HCPCS: 93798 ==

== ENCOUNTER 2022-11-05 15:08 | Outpatient (RCR) | payer MEDICARE, OTHER, SELFPAY | END 2022-12-05 23:59 | disposition home or self-care (01) | LOC: CR 15:08 | PROVIDERS: PCP Nurse Practitioner Family; Referring Provider Internal Medicine Cardiovascular Disease; Visit Provider Internal Medicine Cardiovascular Disease | DX: I25.10 Atherosclerotic heart disease of native coronary artery without angina pectoris (principal) | CPT/HCPCS: 93798 ==

== ENCOUNTER 2022-12-06 12:13 | Outpatient (RCR) | payer MEDICARE, OTHER, SELFPAY | END 2023-01-04 23:59 | disposition home or self-care (01) | LOC: CR 12:13 | PROVIDERS: PCP Nurse Practitioner Family; Referring Provider Internal Medicine Cardiovascular Disease; Visit Provider Internal Medicine Cardiovascular Disease | DX: I25.10 Atherosclerotic heart disease of native coronary artery without angina pectoris (principal) | CPT/HCPCS: 93798 ==

== ENCOUNTER 2023-01-06 10:12 | Outpatient (RCR) | payer MEDICARE, OTHER, SELFPAY | END 2023-02-04 23:59 | disposition home or self-care (01) | LOC: CR 10:12 | PROVIDERS: PCP Nurse Practitioner Family; Referring Provider Internal Medicine Cardiovascular Disease; Visit Provider Internal Medicine Cardiovascular Disease | DX: I25.10 Atherosclerotic heart disease of native coronary artery without angina pectoris (principal) | CPT/HCPCS: 93798 ==

== ENCOUNTER 2023-01-29 15:07 | Outpatient (CLI) | payer MEDICARE, OTHER, SELFPAY ==
--- NOTE | 2023-01-29 16:25 | XR_ITS ---
WS: [email or web address] Exam: XR lumbar spine 2-3V* [id number] Date/Time of Exam: 01/29/2023 4:25 PM Reason For Exam: Lower back pain No fracture or dislocation. Degenerative disc narrowing from L2-S1 but most marked at L4-5 and L5-S1. Mild spondylosis. Moderate levoscoliosis. Facet DJD at L4-5 and L5-S1. Aortoiliac atherosclerosis. IMPRESSION: 1. Moderate degenerative changes and levoscoliosis. 2. No fracture or malalignment.
--- NOTE | 2023-01-29 16:25 | XR_ITS ---
WS: [email or web address] Exam: XR thoracic spine 2V [id number] Date/Time of Exam: 01/29/2023 4:25 PM Reason For Exam: T-spine pain No acute fracture or dislocation. Mild dextroscoliosis. Mild spondylosis. Osteopenia. Normal paraspin al soft tissues. IMPRESSION: 1. No fracture or malalignment. 2. Degenerative changes and mild scoliosis.
== END 2023-01-29 15:08 | disposition home or self-care (01) ==
PROVIDERS: PCP Nurse Practitioner Family; Visit Provider Nurse Practitioner Family
DX: M47.814 Spondylosis without myelopathy or radiculopathy, thoracic region (principal); M41.9 Scoliosis, unspecified; M47.817 Spondylosis without myelopathy or radiculopathy, lumbosacral region; M41.87 Other forms of scoliosis, lumbosacral region
CPT/HCPCS: 72070; 72100

== ENCOUNTER → 2023-02-11 15:28 | Outpatient (BNVA) | payer MEDICARE, OTHER, SELFPAY | PROVIDERS: PCP Nurse Practitioner Family; Visit Provider Internal Medicine Cardiovascular Disease | DX: I25.10 Atherosclerotic heart disease of native coronary artery without angina pectoris (principal); I10 Essential (primary) hypertension; E78.5 Hyperlipidemia, unspecified; F17.200 Nicotine dependence, unspecified, uncomplicated | CPT/HCPCS: 99214 ==

== ENCOUNTER → 2023-04-17 09:23 | Outpatient (BNVA) | payer MEDICARE, OTHER, SELFPAY | PROVIDERS: PCP Nurse Practitioner Family; Referring Provider Nurse Practitioner Family; Visit Provider Anesthesiology Pain Medicine | DX: M54.16 Radiculopathy, lumbar region (principal); G89.29 Other chronic pain; M47.816 Spondylosis without myelopathy or radiculopathy, lumbar region | CPT/HCPCS: 99204 ==

== ENCOUNTER 2023-05-14 12:31 | Outpatient (CLI) | payer MEDICARE, OTHER, SELFPAY ==
--- NOTE | 2023-05-14 13:00 | MR_ITS ---
WS: [id number] MRI LUMBAR SPINE NONCONTRAST HISTORY: M54.16 - Radiculopathy, lumbar region COMPARISON: None available. TECHNIQUE: Sagittal and axial multisequence imaging is submitted. C5-6 Central disc protrusion contacts the ventral cervical cord. Mild increase in thoracic kyphosis. Normal lumbar alignment with no compression fractures or marrow edema. Mild disc space narrowing and desiccation throughout the lumbar spine, greatest at L5-S1. No acute fr acture. No marrow edema. Conus terminates normally at L1-2 disc level. L1-L2: Bilateral ligamentum flavum hypertrophy. No stenosis. L2-L3: Mild disc bulging with a very shallow LEFT paracentral disc protrusion. Mild bilateral facet a rthritis. L3-L4: Mild disc bulging with a shallow LEFT foraminal disc protrusion contacting the exiting LEFT L3 nerve root. No high-grade stenosis. Marked ligamentum flavum hypertrophy. L4-L5: Marked annular disc bulging with ligamentum flavum and facet arthritis. Broad-based disc bulgi ng into the LEFT foramen and extraforaminal. There is a shallow central disc protrusion. There is mil d disc contact on the traversing L5 nerve roots. Very mild RIGHT foraminal stenosis and moderate LEFT foraminal stenosis. L5-S1: Mild annular disc bulging with a central disc protrusion. Moderate bilateral foraminal stenosi s. There is disc contacting the exiting L5 nerve roots. Mild atherosclerosis aorta. IMPRESSION: 1. Diffuse moderate spondylosis throughout the lumbar spine with no acute fracture. 2. L2-3: Shallow LEFT paracentral disc protrusion and mild bilateral facet arthritis. 3. L3-4: Shallow LEFT foraminal disc protrusion contacting the exiting LEFT L3 nerve root. 4. L4-5: Broad-based disc bulging to the LEFT foramen and extraforaminal. Additional shallow central disc protrusion. Mild disc contact at the traversing L5 nerve roots. Moderate LEFT foraminal stenosi s. 5. L5-S1: Moderate bilateral foraminal stenosis.
== END 2023-05-14 12:32 | disposition home or self-care (01) ==
LOC: RAD 12:31
PROVIDERS: PCP Nurse Practitioner Family; Visit Provider Anesthesiology Pain Medicine
DX: M54.16 Radiculopathy, lumbar region (principal)
CPT/HCPCS: 72148

== ENCOUNTER → 2023-06-10 10:59 | Outpatient (BNVA) | payer MEDICARE, OTHER, SELFPAY | PROVIDERS: PCP Nurse Practitioner Family; Visit Provider Anesthesiology Pain Medicine | DX: M47.816 Spondylosis without myelopathy or radiculopathy, lumbar region; M48.07 Spinal stenosis, lumbosacral region | CPT/HCPCS: 99214 ==

== ENCOUNTER → 2023-07-22 10:47 | Outpatient (BNVA) | payer MEDICARE, OTHER, SELFPAY | PROVIDERS: PCP Nurse Practitioner Family; Visit Provider Anesthesiology Pain Medicine | DX: M47.816 Spondylosis without myelopathy or radiculopathy, lumbar region; M51.26 Other intervertebral disc displacement, lumbar region; M48.061 Spinal stenosis, lumbar region without neurogenic claudication | CPT/HCPCS: 99214 ==

== ENCOUNTER 2023-08-06 14:58 | Outpatient (CLI) | payer MEDICARE, SELFPAY ==
--- NOTE | 2023-08-06 15:06 | CT_ITS ---
WS: [email or web address] LDCT LUNG CANCER SCREENING TECHNIQUE: Noncontrast CT of the chest with coronal and sagittal reformatted images. CLINICAL INFORMATION: NICOTINE DEPENDENCE, CIGARETTES COMPARISON: None. DLP: 72.31 mGy.cm DIvol: Mean CTDIvol: 1.60 (mGy) All CT scans at [facility] use at least one of these dose optimization techniques: automat ed exposure control; mA and/or kV adjustment per patient size (includes targeted exams where dose is matched to clinical indication); or iterative reconstruction. FINDINGS: No suspicious pulmonary parenchymal abnormalities. Mild chronic emphysematous changes. Aortic calcification. No mediastinal or hilar lymphadenopathy. Co ronary calcification. No axillary lymphadenopathy. Cholecystectomy clips. Adrenal glands are normal. Normal GE junction. Hypertrophic changes thoracic spine. CT/CT lung screening [id number] IMPRESSION: LUNG-RADS: 1-Negative FOLLOW UP: 12 Month: Continue annual screening with LDCT
--- NOTE | 2023-08-06 15:06 | MM_ITS ---
WS: [email or web address] BILATERAL 3D TOMOSYNTHESIS DIGITAL SCREENING MAMMOGRAPHY WITH CAD CLINICAL INFORMATION: SCREENING HISTORY: Screening mammogram. No current complaints. COMPARISON: 2009 TECHNIQUE: Bilateral CC and MLO views. FINDINGS: Scattered fibroglandular densities bilaterally. No suspicious focal mass, asymmetry, calcifications, or architectural distortion. No evidence of malignancy. A few incidental punctate and clustered calci fications. MM/[place] [id number] IMPRESSION: BI-RADS: 2-Benign FOLLOW UP: 1 Year Follow-up Recommend return to annual screening mammography.
--- NOTE | 2023-08-06 15:13 | XR_ITS ---
WS: [email or web address] SCREENING DEXA SCAN [employer] CLINICAL INFORMATION: ASYMTOMATIC MENOPAUSAL STATE COMPARISON: None. FINDINGS: The L1-L4 bone mineral density measures 1.027 g/cm2. This corresponds to a T score score of -1.3 and Z score of -0.3. Left femoral neck bone mineral density measures 0.887 g/cm2. This corresponds to a T score of -1.0 an d Z score of 0.1. Right femoral neck bone mineral density measures 0.855 g/cm2. This corresponds to a T score -1.2of an d Z score of -0.2. Mean femoral neck bone mineral density measures 0.871 g/cm2. This corresponds to a T score of -1.1 an d Z score of 0.0. XR/XR DEXA axial skeleton* [id number] IMPRESSION: Osteopenia lumbar spine. Osteopenia femoral necks. Patient's FRAX calculated 10 year probability for major osteoporotic fracture i s 14.8% and osteoporotic hip fracture is 5.5%.
== END 2023-08-06 14:59 | disposition home or self-care (01) ==
LOC: RAD 14:59
PROVIDERS: PCP Nurse Practitioner Family; Visit Provider Nurse Practitioner Family
DX: Z12.31 Encounter for screening mammogram for malignant neoplasm of breast (principal); Z13.820 Encounter for screening for osteoporosis; F17.210 Nicotine dependence, cigarettes, uncomplicated; Z78.0 Asymptomatic menopausal state; Z12.2 Encounter for screening for malignant neoplasm of respiratory organs; R92.323 Mammographic fibroglandular density, bilateral breasts; M85.88 Other specified disorders of bone density and structure, other site; M85.862 Other specified disorders of bone density and structure, left lower leg; M85.861 Other specified disorders of bone density and structure, right lower leg; I70.0 Atherosclerosis of aorta
CPT/HCPCS: 71271; 77063; 77067; 77080

== ENCOUNTER → 2023-08-07 10:30 | Outpatient (BNVA) | payer MEDICARE, OTHER, SELFPAY | PROVIDERS: PCP Nurse Practitioner Family; Visit Provider Anesthesiology Pain Medicine | DX: M47.816 Spondylosis without myelopathy or radiculopathy, lumbar region; M48.07 Spinal stenosis, lumbosacral region | CPT/HCPCS: 99214 ==

== ENCOUNTER → 2023-08-18 14:36 | Outpatient (BNVA) | payer MEDICARE, OTHER, SELFPAY | PROVIDERS: PCP Nurse Practitioner Family; Visit Provider Internal Medicine Cardiovascular Disease | DX: I25.10 Atherosclerotic heart disease of native coronary artery without angina pectoris (principal); F17.200 Nicotine dependence, unspecified, uncomplicated; I10 Essential (primary) hypertension; E78.5 Hyperlipidemia, unspecified | CPT/HCPCS: 99214 ==

== ENCOUNTER → 2023-09-10 10:43 | Outpatient (BNVA) | payer MEDICARE, OTHER, SELFPAY | PROVIDERS: PCP Nurse Practitioner Family; Visit Provider Anesthesiology Pain Medicine | DX: M47.816 Spondylosis without myelopathy or radiculopathy, lumbar region | CPT/HCPCS: 99214 ==

== ENCOUNTER 2023-09-24 09:38 | Inpatient (IN) | payer MEDICARE, OTHER, SELFPAY ==
[2023-09-24] VITALS (9 sets, daily range): BP systolic 92–123; BP diastolic 55–73; PULSE 82–110; RESP 18–20; TEMP 36.6–37.3; O2SAT 90–94; BMI 32.2
--- NOTE | 2023-09-24 10:10 | XR_ITS ---
WS: [email or web address] Exam: XR chest 1V portable [id number] Date/Time of Exam: 09/24/2023 10:10 AM Reason For Exam: dyspnea/cough Comparison 06/13/2023. There is patchy infiltrate in the RIGHT upper, lower and middle lobes suggesting pneumonia. The LEFT lung is clear. Cardiomediastinal silhouette is normal for technique. No pneumothorax or pleural effus ion. XR/XR chest 1V portable [id number] IMPRESSION: 1. Patchy pneumonic infiltrates in the upper, middle and lower lobes of the RIG HT lung suggesting active pneumonia.
--- NOTE | 2023-09-24 10:51 | W.ED.GENADLT ---
HPI - General Adult General: Chief complaint: General Medical Stated complaint: sent by otilio walters o2 Time Seen by Provider: 09/24/23 10:08 Source: patient Mode of arrival: ambulatory History of Present Illness: 72-year-old female presents emergency room with complaints of hypoxia at her doctor's office and was directed here. On arrival here she is 90% on room air with any activity she desats she is having some moderately productive cough. She states she has a chronic productive baseline cough that seems a little bit more frequent but has not changed in character or quantity of sputum. She does not usually wear oxygen at home she was a smoker until earlier this week and she stopped. She has low-grade subjective fever as well. Denies chest pain or abdominal pain. Onset (ago): day(s) Associated symptoms: Reports cough, fevers/chills, malaise and short of breath; Deny chest pain, confusion, diaphoresis, decreased appetite, dyspnea, headache(s), nausea, rash, palpitations, seizures, syncope, vomiting or weakness Review of Systems Const: Reports: malaise; Denies: diaphoresis Card: Denies: chest pain, palpitations or syncope Resp: Denies: dyspnea GI: Denies: nausea or vomiting : Denies: dysuria, urinary frequency or urinary urgency Musc: Denies: neck pain or back pain Skin/Breast: Denies: rash Neuro: Denies: headache(s) or confusion PFSH ED PFSH: Medical History Epistaxis Atherosclerosis of coronary artery Elevated troponin Smoking addiction Hypotension Bradycardia Epigastric pain Left arm pain Hypertension Colon polyp Diverticulosis Surgical History H/O: hysterectomy History of appendectomy History of cholecystectomy H/O tubal ligation History of breast biopsy Family History Other CAD (coronary artery disease) Social History Smoking and tobacco/nicotine status: current every day tobacco/nicotine user Alcohol intake: never Substance/Drug Use: never Physical Exam Const: GENERAL APPEARANCE: cooperative and comfortable ORIENTATION/CONSCIOUSNESS: Yes awake, Yes oriented to person, Yes oriented to place and Yes oriented to time HENMT: COMMON NORMALS: normocephalic, atraumatic and hearing grossly normal bilaterally HEAD & SCALP: normocephalic and atraumatic Resp: COMMON NORMALS: normal respiratory effort, No retractions and No use of accessory muscles AUSCULTATION: rhonchi and wheezes Cardio: COMMON NORMALS: regular rate, regular rhythm and No murmurs present (Cardio) RATE: regular rate RHYTHM: regular rhythm GI: COMMON NORMALS: Soft to palpation and No hepatosplenomegaly present AUSCULTATION: Yes normoactive bowel sounds PALPATION: Yes Soft to palpation, No Tenderness to palpation present (GI), No Guarding due to palpation present (GI) and Yes No hepatosplenomegaly present Extremity: COMMON NORMALS: normal to inspection, capillary refill normal, no clubbing, cyanosis or edema, no calf tenderness and no pedal edema Neuro: SENSORIUM/ORIENTATION: Yes oriented to person, Yes oriented to place and Yes oriented to time Skin: COMMON NORMALS: no rashes or lesions noted GENERAL SKIN EXAM: no rashes or lesions noted Course Vital Signs: Vital signs: Vital Signs Temperature 98 F 09/24/23 15:31 Pulse Rate 96 09/24/23 16:39 Respiratory Rate 18 09/24/23 16:39 Blood Pressure 111/71 09/24/23 15:31 Pulse Oximetry 92 09/24/23 16:39 Oxygen Delivery Me thod Nasal Cannula 09/24/23 16:39 Oxygen Flow Rate 2 09/24/23 16:39 MDM - General Adult Medical Decision Making Right middle lower lobe pneumonia she also complained a little abdominal pain CT of the abdomen is unremarkable. Will admit the patient on 6 ceftriaxone and azithromycin. Aggressive pulmonary toilet discussed with hospitalist orders written. Time of admission patient is resting comfortably no shortness of breath on 2 L by nasal cannula. Medical Records I reviewed the patient's medical records. Lab Data I reviewed the patient's lab results. 09/24/23 10:34 09/24/23 10:34 Radiology Impressions Chest X-Ray 09/24/23 10:10 IMPRESSION: 1. Patchy pneumonic infiltrates in the upper, middle and lower lobes of the RIGHT lung suggesting active pneumonia. Abdomen/Pelvis CT 09/24/23 10:56 IMPRESSION: 1. New multifocal airspace opacity is noted in the right middle lobe and right lower lobe concerning for pneumonic infiltrates. 2. No acute abnormality in the abdomen or pelvis. Laboratory Results WBC 23.42 10^3/uL (3.29-11.43) H 09/24/23 10:34 RBC 4.63 10^6/uL (3.85-5.65) 09/24/23 10:34 Hgb 14.00 g/dL (11.27-16.99) 09/24/23 10:34 Hct 41.9 % (36-47) 09/24/23 10:34 MCV 90.5 fl (85-98) 09/24/23 10:34 MCH 30.2 pg (27-33) 09/24/23 10:34 MCHC 33.4 g/dL (30-55) 09/24/23 10:34 RDW 13.2 % (12.1-15.1) 09/24/23 10:34 Plt Count 266 10^3/cmm (157-399) 09/24/23 10:34 MPV 11.1 fL (7.4-10.4) H 09/24/23 10:34 Neut % (Auto) 70.4 % 09/24/23 10:34 Lymph % (Auto) 20.7 % 09/24/23 10:34 [place] % (Auto) 7.9 % 09/24/23 10:34 Eos % (Auto) 0.1 % 09/24/23 10:34 Baso % (Auto) 0.4 % 09/24/23 10:34 Neut # (Auto) 16.49 10^3/uL (1.8-7.7) H 09/24/23 10:34 Lymph # (Auto) 4.9 10^3/uL (0.8-4.8) H 09/24/23 10:34 [place] # (Auto) 1.8 10^3/uL (0.2-0.9) H 09/24/23 10:34 Eos # (Auto) 0.0 10^3/uL (0.0-0.8) 09/24/23 10:34 Baso # (Auto) 0.1 10^3/uL (0.0-0.1) 09/24/23 10:34 Nucleated RBC % (auto) 0 % 09/24/23 10:34 Nucleated RBCs # 0.0 /100WBC 09/24/23 10:34 D-Dimer 2.89 ug/mLFEU (0-0.59) H 09/24/23 10:34 Specimen Type Arterial 09/24/23 11:26 Sample Site Radial, left 09/24/23 11:26 ABG pH 7.49 (7.35-7.45) H 09/24/23 11:26 ABG pCO2 34.8 mmHg (35-45) L 09/24/23 11:26 ABG pO2 56.6 mmHg (80.0-100.0) L 09/24/23 11:26 ABG PO2/FiO2 Ratio 0 09/24/23 11:26 ABG HCO3 26.3 mmol/L (22-26) H 09/24/23 11:26 ABG O2 Saturation 91.4 09/24/23 11:26 ABG Base Excess 3.2 mmol/L (-2.0-2.0) H 09/24/23 11:26 Gopi Test Pos 09/24/23 11:26 A-a O2 Gradient 6.6 mmHg (5-10) 09/24/23 11:26 Hematocrit 44.9 % (37-47) 09/24/23 11:26 Hgb O2 Saturation 89.6 % (95-100) L 09/24/23 11:26 Carboxyhemoglobin 1.9 %THgb (0.4-20.1) 09/24/23 11:26 Methemoglobin 0.1 % (0.4-1.5) L 09/24/23 11:26 Total Hemoglobin 14.7 g/dL (12-16) 09/24/23 11:26 Sodium 139.0 mmol/L (131-143) 09/24/23 11:26 Potassium 3.7 mmol/L (3.5-5.0) 09/24/23 11:26 Glucose 103.0 mg/dL (70-115) 09/24/23 11:26 Ionized Calcium 1.2 mmol/L (1.1-1.4) 09/24/23 11:26 O2 Delivery Device Room air 09/24/23 11:26 FiO2 21.0 % 09/24/23 11:26 Senior Label Specialist ID [email or web address] 09/24/23 11:26 Sodium 139 mmol/L (136-145) 09/24/23 10:34 Potassium 4.0 mmol/L (3.5-5.1) 09/24/23 10:34 Chloride 101 mmol/L (98-107) 09/24/23 10:34 Carbon Dioxide 24 mmol/L (22-29) 09/24/23 10:34 Anion Gap 18.0 (5-19) 09/24/23 10:34 BUN 14 mg/dL (8-23) 09/24/23 10:34 Creatinine 0.6 mg/dL (0.5-0.9) 09/24/23 10:34 GFR Calculation Not Reportable 09/24/23 10:34 Glucose 98 mg/dL (65-115) 09/24/23 10:34 Calculated Osmolality 288 mOsm/kg (285-295) 09/24/23 10:34 Lactic Acid 1.1 mmol/L (0.5-2.2) 09/24/23 10:34 Calcium 9.3 mg/dL (8.5-10.5) 09/24/23 10:34 Total Bilirubin 1.2 mg/dL (0.15-1.2) 09/24/23 10:34 AST 55 U/L (0-32) H 09/24/23 10:34 ALT 43 U/L (0-33) H 09/24/23 10:34 Alkaline Phosphatase 96 U/L (35-105) 09/24/23 10:34 Troponin T Baseline 16 ng/L (0-10) H 09/24/23 10:34 Troponin T 120 Minute 15.06 ng/L (0-10) H 09/24/23 12:08 Delta Troponin T -0.94 ABS# (0-10) L 09/24/23 12:08 Total Protein 7.0 g/dL (6.6-8.7) 09/24/23 10:34 Albumin 3.7 g/dL (3.5-5.2) 09/24/23 10:34 Globulin 3.3 g/dL (1.3-4.6) 09/24/23 10:34 Procalcitonin 0.17 ng/mL (0-0.5) 09/24/23 10:34 Urine Color Yellow (Yellow) 09/24/23 11:05 Urine Appearance Cloudy (CLEAR) A 09/24/23 11:05 Urine pH 5 (5-7) 09/24/23 11:05 Ur Specific [place] 1.025 (1.005-1.030) 09/24/23 11:05 Urine Protein 1+ (Negative) H 09/24/23 11:05 Urine Glucose (UA) Norm (Normal) 09/24/23 11:05 Urine Ketones 1+ (Negative) H 09/24/23 11:05 Urine Blood 2+ (Negative) H 09/24/23 11:05 Urine Nitrate Negative (Negative) 09/24/23 11:05 Urine Bilirubin Neg (Negative) 09/24/23 11:05 Urine Urobilinogen 1 mg/dL (Negative) H 09/24/23 11:05 Ur Leukocyte Esterase Trace (Negative) H 09/24/23 11:05 Urine RBC 0-4 /hpf (0-2) H 09/24/23 11:05 Urine WBC 0-4 /hpf (0-5) H 09/24/23 11:05 Ur Squamous Epith Cells 0-4 /hpf (0-5) H 09/24/23 11:05 Amorphous Sediment Not Reportable 09/24/23 11:05 Urine Bacteria 1+ /hpf (NONE) H 09/24/23 11:05 Urine Mucus 2+ /hpf 09/24/23 11:05 All radiology interpretation(s) finalized by discharge Discharge Plan Discharge Patient Disposition: Admitted As Inpatient Admit Provider: Virginia Clarke Clinical Impression: Pneumonia, COPD (chronic obstructive pulmonary disease) Condition: Stable Coding Level of Care Code ED Process Engineering Technician for Nava Brooks
--- NOTE | 2023-09-24 10:56 | ECG_ITS ---
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 Measurements Intervals [place] Rate: 93 P: 69 MD: 131 QRS: 84 QRSD: 91 T: 74 QT: 344 QTc: 430 Interpretive Statements SINUS RHYTHM MINIMAL ST DEPRESSION [0.025+ mV ST DEPRESSION] Compared to ECG 06/13/2022 03:45:43 Sinus arrhythmia no longer present ST (T wave) deviation still present Electronically Signed On 09-26-2023 13:29:08 CDT by Antoine Edmond M.D. [id number]
--- NOTE | 2023-09-24 10:56 | CTR_ITS ---
PROCEDURE INFORMATION: Exam: CT Abdomen And Pelvis Without Contrast Exam date and time: 09/24/2023 11:13 AM Age: 72 years old Clinical indication: Fever and nausea; Prior surgery; Surgery date: 6+ months; Surgery type: Tubal, appy, gb; Additional info: Abdominal pain TECHNIQUE: Imaging protocol: Computed tomography of the abdomen and pelvis without contrast. Radiation optimization: All CT scans at this facility use at least one of these dose optimization techniques: automated exposure control; mA and/or kV adjustment per patient size (includes targeted exams where dose is matched to clinical indication); or iterative reconstruction. COMPARISON: CT ang [facility]hes abdpel [id number] 06/12/2022 6:38 AM RADIATION DOSE METRICS: Total DLP (mGy-cm): 762.02 FINDINGS: Lungs: New multifocal airspace opacity is noted in the right middle lobe and right lower lobe concerning for pneumonic infiltrates. Liver: Unremarkable.No mass. Gallbladder and bile ducts: There has been a cholecystectomy. There is no common bile duct dilation. Pancreas: Normal. No ductal dilation. Spleen: The spleen is normal. An accessory splenule is present. Adrenal glands: There is multilobulated benign adenomatous enlargement of the adrenal glands. Kidneys and ureters: Normal. No hydronephrosis. Stomach and bowel: There is no evidence of intestinal perforation or obstruction. There is no evidence of colitis/diverticulitis. There is no evidence of colitis/diverticulitis. Appendix: The appendix is not definitively identified. However, there is no CT evidence of a right lower quadrant inflammatory process. Intraperitoneal space: Unremarkable. No free air. No significant fluid collection. Vasculature: Unremarkable.No abdominal aortic aneurysm. Lymph nodes: Unremarkable.No enlarged lymph nodes. Urinary bladder: The bladder is normal. Reproductive: There has been a hysterectomy. Bones/joints: No acute bony abnormality. There are moderate degenerative changes in the spine and hips. Soft tissues: There is a fat-containing umbilical hernia. CT/CT abdomen pelvis wo con [id number] IMPRESSION: 1. New multifocal airspace opacity is noted in the right middle lobe and right lower lobe concerning for pneumonic infiltrates. 2. No acute abnormality in the abdomen or pelvis.
[2023-09-24 10:57] LABS: Basophils # 0.1 10^3/uL (0.0-0.1); Basophils % 0.4 %; Eosinophils % 0.1 %; Hematocrit 41.9 % (36-47); Lymphocytes # 4.9 10^3/uL (0.8-4.8); Lymphocytes % 20.7 %; Mean Corpuscular HGB Conc 33.4 g/dL (30-55); Mean Corpuscular Hemoglobin 30.2 pg (27-33); Mean Corpuscular Volume 90.5 fl (85-98); Mean Platelet Volume 11.1 fL (7.4-10.4); Monocytes # 1.8 10^3/uL (0.2-0.9); Monocytes % 7.9 %; Neutrophils # 16.49 10^3/uL (1.8-7.7); Neutrophils % 70.4 %; Nucleated Red Blood Cells % 0 %; Platelet Count 266 10^3/cmm (157-399); Red Blood Count 4.63 10^6/uL (3.85-5.65); Red Cell Distribution Width 13.2 % (12.1-15.1); White Blood Count 23.42 10^3/uL (3.29-11.43)
[2023-09-24] MEDS: methylPREDNISolone sod succ 125 mg/2 mL INJ IVP (11:08)
[2023-09-24 11:15] LABS: Alanine Aminotransferase 43 U/L (0-33); Albumin Level 3.7 g/dL (3.5-5.2); Alkaline Phosphatase 96 U/L (35-105); Blood Urea Nitrogen 14 mg/dL (8-23); Calcium 9.3 mg/dL (8.5-10.5); Carbon Dioxide 24 mmol/L (22-29); Chloride 101 mmol/L (98-107); Creatinine Clr Calc Pharmacy 65.6367; Globulin 3.3 g/dL (1.3-4.6); Glucose 98 mg/dL (65-115); Osmolality Calculated 288 mOsm/kg (285-295); Sodium 139 mmol/L (136-145); Total Bilirubin 1.2 mg/dL (0.15-1.2)
[2023-09-24 11:19] LABS: Aspartate Amino Transferase 55 U/L (0-32)
[2023-09-24] MEDS: ipratropium-albuterol 3 mL Neb INHALATION ×2 (11:21→16:39)
[2023-09-24 11:27] LABS: Add Urine Microscopic? YES; Bilirubin Urine Neg (Negative); Blood Urine 2+ (Negative); Glucose Urine UA Norm (Normal); Ketones Urine 1+ (Negative); Leukocyte Esterase Urine Trace (Negative); Nitrate Urine Negative (Negative); Protein Urine 1+ (Negative); Specific Gravity, Urine 1.025 (1.005-1.030); Urine Appearance Cloudy (CLEAR); Urine Color Yellow (Yellow); Urobilinogen Urine 1 mg/dL (Negative); pH Urine 5 (5-7)
[2023-09-24 11:28] LABS: Bacteria Urine 1+ /hpf; Mucus Urine 2+ /hpf; RBC Urine 0-4 /hpf (0-2); Squamous Epithelial Cell Urine 0-4 /hpf (0-5); WBC Urine 0-4 /hpf (0-5)
[2023-09-24 11:38] LABS: ABG PCO2 34.8 mmHg (35-45); ABG PH Result 7.49 (7.35-7.45); Alveolar-Arterial Oxygen Gradi 6.6 mmHg (5-10); Arterial Blood Gas Hematocrit 44.9 % (37-47); Base Excess ABG 3.2 mmol/L (-2.0-2.0); Blood Gas Allen Test Pos; Blood Gas Operator Identificat glc; Blood Gas Sample Site Radial, left; Blood Gas Sample Type Arterial; Carboxyhemoglobin 1.9 %THgb (0.4-20.1); HCO3 ABG 26.3 mmol/L (22-26); HGB O2 Sat 89.6 % (95-100); Ionized Calcium Level - ABG 1.2 mmol/L (1.1-1.4); Methemoglobin 0.1 % (0.4-1.5); Oxygen Device ROOM AIR; Oxygen Saturation ABG 91.4; PO2 ABG 56.6 mmHg (80.0-100.0); PO2 FiO2 Ratio Arterial Blood 0; Potassium Level - ABG 3.7 mmol/L (3.5-5.0); Total Hemoglobin 14.7 g/dL (12-16)
[2023-09-24 11:42] LABS: Troponin(5th) Baseline 16 ng/L (0-10)
[2023-09-24 11:47] LABS: Lactic Sepsis W/Reflex 1.1 mmol/L (0.5-2.2)
[2023-09-24] MEDS: cefTRIAXone 1,000 MG in sodium chloride 0.9% (plus) 50 ML 100 MG IV (12:20)
[2023-09-24 12:35] LABS: Troponin 5 2HR 15.06 ng/L (0-10)
[2023-09-24 12:39] LABS: Troponin 5 2HR Delta -0.94 ABS# (0-10)
--- NOTE | 2023-09-24 12:56 | ECG_ITS ---
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 Measurements Intervals [place] Rate: 95 P: 63 MT: 139 QRS: 79 QRSD: 87 T: 75 QT: 347 QTc: 437 Interpretive Statements SINUS RHYTHM NONSPECIFIC T-WAVE ABNORMALITY Compared to ECG 09/24/2023 11:09:49 T-wave abnormality now present ST (T wave) deviation no longer present Electronically Signed On 09-26-2023 13:55:33 CDT by Antoine Edmond M.D. [id number]
[2023-09-24] MEDS: azithromycin 500 MG in sodium chloride 0.9% 250 ML 250 MG IV (13:02)
--- NOTE | 2023-09-24 14:46 | P.HP_ITS ---
Providers/Chief Complaint 2 Admitting Physician: Virginia Clarke MD Primary Care Provider: Nyasia Brito, DROP WIRER Chief Complaint: sent by otilio walters o2 History of Present Illness Aleyda Elizalde is a 72 year old female With past medical history of hypertension, dyslipidemia, smoking, diverticulosis who presented to the hospital today with complaint of productive cough. She says that this has increased in quantity and she does have a lot of sputum however she swallows it. Unable to tell me what color it might be. She does not wear oxygen at home and quit smoking this past Friday. No other complaints at this time. Denies chest pain, abdominal pain. She said usually when she gets sick she gets better however this time she got worse. Chest x-ray shows patchy pulmonary infiltrates in upper middle lower lobes of right lung suggestive of active pneumonia. ER course: 103/64, 18, 110, 98.8, saturating 90% on room air. Ceftriaxone azithromycin given. WBC 23,000, creatinine 0.6, ALT 55, LT 43, baseline Trope 16, 2-hour Trope 15, delta -0.9. UA 1+ ketone, 2+ blood, 1+ bacteria. Blood cultures drawn. Initial EKG showed sinus rhythm. CT abdomen pelvis was obtained which showed new multifocal airspace opacity in right middle lobe and right lower lobe concerning for pneumonic infiltrates. No acute abnormality in abdomen or pelvis. Medications/Allergies Home Medications Medication Instructions Recorded Confirmed Last Taken Type nitroglycerin 0.4 mg sublingual 0.4 mg sublingual Q5M PRN Chest 06/12/22 09/24/23 Unknown History tablet (Nitrostat) Pain clopidogrel 75 mg tablet (Plavix) 75 mg PO DAILY #90 tabs 03/12/23 09/24/23 09/24/23 Rx tizanidine 4 mg tablet 4 mg PO BID PRN muscle spasticity 08/07/23 09/24/23 Unknown Rx #60 tabs amlodipine 5 mg tablet 5 mg PO DAILY #90 tabs 08/20/23 09/24/23 09/24/23 Rx atorvastatin 20 mg tablet 20 mg PO QPM 09/24/23 09/24/23 09/23/23 History calcium carbonate (Calcium 600) 600 mg PO DAILY 09/24/23 09/24/23 09/24/23 History cholecalciferol (vitamin D3) 50 50 mcg PO DAILY 09/24/23 09/24/23 09/24/23 History mcg (2,000 unit) capsule (Vitamin D3) magnesium 250 mg tablet 250 mg PO DAILY 09/24/23 09/24/23 09/24/23 History Allergies Allergy/AdvReac Type Severity Reaction Status Date / Time No Known Allergies Allergy Verified 08/18/23 15:09 PFSH Acute 2 PFSH: Medical History Epistaxis Atherosclerosis of coronary artery Elevated troponin Smoking addiction Hypotension Bradycardia Epigastric pain Left arm pain Hypertension Colon polyp Diverticulosis Surgical History H/O: hysterectomy History of appendectomy History of cholecystectomy H/O tubal ligation History of breast biopsy Family History Other CAD (coronary artery disease) Social History Smoking and tobacco/nicotine status: current every day tobacco/nicotine user Alcohol intake: never Substance/Drug Use: never Vitals/I&O/Wt Last Vital Signs Temp 98.8 F 09/24/23 09:44 Pulse 97 09/24/23 13:00 Resp 20 H 09/24/23 11:25 BP 92/55 09/24/23 13:00 Pulse Ox 92 09/24/23 14:00 O2 Del Method Nasal Cannula 09/24/23 14:00 O2 Flow Rate 2 09/24/23 14:00 09/23/23 09/24/23 09/24/23 22:59 06:59 14:59 Intake Total 300 / 300 Balance 300 / 300 Weight last 48 hrs Weight 82.554 kg Physical Exam 2 Narrative: General: Alert oriented x3, patient seen sitting up in bed oxygen nasal cannula in no acute respiratory distress. HEENT: Normocephalic, atraumatic, EOMI, Cardio: Regular rate rhythm, normal S1-S2, Respiratory: Mild rhonchi diffusely throughout lung nuñez. Fair bilateral air entry GI: Abdomen soft, nontender, nondistended, bowel sounds + Behavior: Appropriate and cooperative Extremities: No edema bilateral lower extremities. Data 09/25/23 06:51 09/25/23 06:51 Micro: Microbiology 09/24/23 12:15 Blood Culture - Preliminary Blood SPECIMEN COLLECTED 09/24/23 12:15 Blood Culture - Preliminary Blood SPECIMEN COLLECTED A&P Assessment and plan (1) Hypertension: Qualifiers: Hypertension type: primary hypertension Qualified Code(s): I10 - Essential (primary) hypertension (2) Dyslipidemia: (3) Smoking addiction: (4) Pneumonia: (5) Oxygen dependent: Plan #Multilobar pneumonia #Hypertension #Dyslipidemia #Nicotine dependence ? Requiring oxygen at this time 2 L nasal cannula. Baseline is room air. ? DuoNeb every 6 hours scheduled ? Continue ceftriaxone, azithromycin ? Check procalcitonin ? Check sputum Gram stain culture ? Check blood cultures ? CT abdomen pelvis, chest x-ray reviewed. ? Patient has a history of hypertension and takes amlodipine 5 mg at home. I will hold that for now. Blood pressure soft 92/55. Continue to monitor blood pressure. ? Patient did not meet sepsis criteria however did meet SIRS criteria. WBC 23,000, blood pressure 92/55, pulse 97. Will check lactic acid ? UA suggestive of possible infection. Will check urine culture ceftriaxone should cover for UTI as well. ? Wean off oxygen as able. ? Will require home O2 eval at discharge ? Continue atorvastatin, Plavix, ?Check D-dimer Full code DVT prophylaxis: Heparin SQ twice daily Attestations 2 Medical Necessity Statement*: Requires greater than 2 midnight stay for management of multilobar pneumonia and requirement of IV antibiotics. Diagnoses Primary hypertension I10 Hypertension type: primary hypertension Dyslipidemia E78.5 Smoking addiction F17.200 Pneumonia J18.9 Oxygen dependent Z99.81
[2023-09-24 15:17] LABS: D Dimer 2.89 ug/mLFEU (0-0.59)
[2023-09-24 15:29] LABS: Procalcitonin 0.17 ng/mL (0-0.5)
--- NOTE | 2023-09-24 16:17 | CTR_ITS ---
PROCEDURE INFORMATION: Exam: CTA Chest With Contrast Exam date and time: 09/24/2023 8:09 PM Age: 72 years old Clinical indication: Shortness of breath; Additional info: R/O pe, hypoxia, TECHNIQUE: Imaging protocol: Computed tomographic angiography of the chest with contrast. Exam focused on the arteries. 3D rendering (Not supervised by radiologist): MIP and/or 3D reconstructed images were created by the technologist. Radiation optimization: All CT scans at this facility use at least one of these dose optimization techniques: automated exposure control; mA and/or kV adjustment per patient size (includes targeted exams where dose is matched to clinical indication); or iterative reconstruction. Contrast material: OMNI 350; Contrast volume: 50 ml; Contrast route: INTRAVENOUS (IV); COMPARISON: [facility] abdpe [id number] 06/12/2022 6:38 AM RADIATION DOSE METRICS: Total DLP (mGy-cm): 348.1 FINDINGS: Pulmonary arteries: There is no evidence of filling defects within the pulmonary arterial circulation to suggest pulmonary embolism. Aorta: There is some atherosclerotic calcification of the aortic arch and descending thoracic aorta. There is no thoracic aortic aneurysm or dissection. Lungs: There is some dependent atelectasis posterior right lower lobe and there are nodular airspace opacities scattered in the periphery of the right lung as well as bronchial wall thickening more prominent in the right lower lobe. Findings are most likely related to infectious or inflammatory disease such as bronchitis or infectious bronchiolitis. There is mucous plugging min obstruction of multiple segmental and subsegmental bronchi in the right lower lobe. Pleural spaces: Unremarkable. No pneumothorax. No pleural effusion. Heart: There is no evidence of pericardial fluid collections. Heart is within normal limits of size. Lymph nodes: There are small paratracheal lymph nodes but no adenopathy. Bones/joints: There is no evidence of acute fracture. Soft tissues: Unremarkable. CT/CT angio chest PE protcl [id number] IMPRESSION: 1. Nodular tree-in-bud type infiltrates in the right lung worrisome for bronchitis and infectious bronchiolitis and/or bronchopneumonia. Follow-up suggested to document clearing 2. No evidence of pulmonary embolism.
--- NOTE | 2023-09-24 16:37 | ECG_ITS ---
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 Measurements Intervals [place] Rate: 82 P: 67 MT: 151 QRS: 83 QRSD: 94 T: 78 QT: 384 QTc: 450 Interpretive Statements SINUS RHYTHM Compared to ECG 09/24/2023 13:00:18 T-wave abnormality no longer present Electronically Signed On 09-26-2023 13:57:04 CDT by Antoine Edmond M.D. [email or web address] [email or web address] geneva [facility] [email or web address]/[id number]
[2023-09-24] MEDS: heparin 5,000 unit/mL INJ 1 mL 5000 UNIT SUBCUT (17:26)
[2023-09-24] MEDS: sodium chloride 0.9% 1,000 ML 100 ML IV (17:27)
[2023-09-24 18:26] LABS: Troponin 5 6HR 12.43 ng/L (0-10)
[2023-09-24 18:27] LABS: Troponin 5 6HR Delta -3.57 ng/L (0-12)
[2023-09-24] MEDS: iohexol 350 mg/mL 500 mL Btl (per mL) IV (20:11)
[2023-09-25] VITALS (13 sets, daily range): BP systolic 94–119; BP diastolic 57–70; PULSE 70–98; RESP 16–18; TEMP 36.4–36.9; O2SAT 92–98; BMI 31.5
[2023-09-25] MEDS: sodium chloride 0.9% 1,000 ML 100 ML IV ×4 (03:11→23:15)
[2023-09-25] MEDS: heparin 5,000 unit/mL INJ 1 mL 5000 UNIT SUBCUT ×2 (03:12→15:14)
[2023-09-25 07:24] LABS: Basophils % 0.1 %; Hematocrit 37.9 % (36-47); Lymphocytes # 1.9 10^3/uL (0.8-4.8); Lymphocytes % 9.2 %; Mean Corpuscular HGB Conc 32.7 g/dL (30-55); Mean Corpuscular Volume 91.5 fl (85-98); Mean Platelet Volume 11.2 fL (7.4-10.4); Monocytes # 0.9 10^3/uL (0.2-0.9); Monocytes % 4.5 %; Neutrophils # 18.03 10^3/uL (1.8-7.7); Neutrophils % 85.4 %; Nucleated Red Blood Cells % 0 %; Platelet Count 248 10^3/cmm (157-399); Red Blood Count 4.14 10^6/uL (3.85-5.65); Red Cell Distribution Width 13.1 % (12.1-15.1); White Blood Count 21.11 10^3/uL (3.29-11.43)
[2023-09-25 07:34] LABS: Alanine Aminotransferase 61 U/L (0-33); Albumin Level 3.5 g/dL (3.5-5.2); Alkaline Phosphatase 94 U/L (35-105); Anion Gap 11.9 (5-19); Aspartate Amino Transferase 41 U/L (0-32); Blood Urea Nitrogen 12 mg/dL (8-23); Calcium 8.7 mg/dL (8.5-10.5); Carbon Dioxide 24 mmol/L (22-29); Chloride 107 mmol/L (98-107); Creatinine Clr Calc Pharmacy 64.8974; Glucose 136 mg/dL (65-115); Magnesium 2.1 mg/dL (1.7-2.3); Osmolality Calculated 290 mOsm/kg (285-295); Potassium 3.9 mmol/L (3.5-5.1); Sodium 139 mmol/L (136-145); Total Bilirubin 0.3 mg/dL (0.15-1.2); Total Protein 6.5 g/dL (6.6-8.7)
[2023-09-25] MEDS: ipratropium-albuterol 3 mL Neb INHALATION ×4 (08:24→21:24)
[2023-09-25] MEDS: ondansetron 2 mg/ML SDV 2 mL 4 MG IVP (11:33)
--- NOTE | 2023-09-25 12:39 | P.PN_ITS ---
Subjective 2 Subjective: Seen this morning. Took off her oxygen because since she is going to the bathroom. She is down to 1 L nasal cannula however. White count 21,000. She is subjectively starting to feel better. Vitals/I&O/Wt Last Vital Signs Temp 97.6 F 09/25/23 11:31 Pulse 98 09/25/23 11:31 Resp 16 09/25/23 11:31 BP 119/70 09/25/23 11:31 Pulse Ox 93 09/25/23 11:31 O2 Del Method Nasal Cannula 09/25/23 11:31 O2 Flow Rate 1 09/25/23 11:31 09/24/23 09/25/23 09/25/23 22:59 06:59 14:59 Intake Total 600 / 900 1213.333 / 2113.333 240 / 240 Output Total 400 / 400 Balance 200 / 500 1213.333 / 1713.333 240 / 240 Weight last 48 hrs Weight 80.739 kg Weight 82.554 kg Physical Exam 2 Narrative: General: Alert oriented x3, patient seen sitting up in bed oxygen nasal cannula in no acute respiratory distress. HEENT: Normocephalic, atraumatic, EOMI, Cardio: Regular rate rhythm, normal S1-S2, Respiratory: Mild rhonchi diffusely throughout lung nuñez. Fair bilateral air entry GI: Abdomen soft, nontender, nondistended, bowel sounds + Behavior: Appropriate and cooperative Extremities: No edema bilateral lower extremities. Data 09/25/23 06:51 09/25/23 06:51 Micro: Microbiology 09/24/23 12:15 Blood Culture - Preliminary Blood NEGATIVE TO DATE 09/24/23 12:15 Blood Culture - Preliminary Blood NEGATIVE TO DATE 09/25/23 06:12 Gram Stain - Final Sputum - Expectorated Sputum 09/24/23 18:44 Legionella Urinary Antigen - Final Urine,Voided Bacterial Antigens - Final A&P Assessment and plan (1) Hypertension: Qualifiers: Hypertension type: primary hypertension Qualified Code(s): I10 - Essential (primary) hypertension (2) Dyslipidemia: (3) Smoking addiction: (4) Pneumonia: (5) Oxygen dependent: Plan #Multilobar pneumonia #Hypertension #Dyslipidemia #Nicotine dependence ? Requiring oxygen at this time 2 L nasal cannula. Baseline is room air. ? DuoNeb every 6 hours scheduled ? Continue ceftriaxone, azithromycin ? Check procalcitonin?normal ? Check sputum Gram stain culture pending ? Check blood cultures pending ? CT abdomen pelvis, chest x-ray reviewed. ? Patient has a history of hypertension and takes amlodipine 5 mg at home. I will hold that for now. Blood pressure soft 92/55. Continue to monitor blood pressure. ? Patient did not meet sepsis criteria however did meet SIRS criteria. WBC 23,000, blood pressure 92/55, pulse 97. Lactic acid normal. ? UA suggestive of possible infection. Will check urine culture ceftriaxone should cover for UTI as well. ? Wean off oxygen as able. ? Will require home O2 eval at discharge ? Continue atorvastatin, Plavix, ? D-dimer elevated. CTA ruled out PE. CT chest did not show pneumonia, extensive mucous plugging in lower lobes. White count 21,000 today. Continue IV antibiotics today. If patient continues to do well may possibly discharge home tomorrow. Full code DVT prophylaxis: Heparin SQ twice daily Attestations 2 Medical Necessity Statement*: Requires inpatient IV antibiotics for multilobar pneumonia. Diagnoses Primary hypertension I10 Hypertension type: primary hypertension Dyslipidemia E78.5 Smoking addiction F17.200 Pneumonia J18.9 Oxygen dependent Z99.81
[2023-09-25] MEDS: cefTRIAXone 1,000 MG in sodium chloride 0.9% (plus) 50 ML 100 MG IV (13:10)
[2023-09-25] MEDS: azithromycin 500 MG in sodium chloride 0.9% 250 ML 250 MG IV (13:11)
--- NOTE | 2023-09-25 15:07 | PC.NURSE ---
This nurse assumed care of pt at 1500
[2023-09-26] VITALS (13 sets, daily range): BP systolic 89–138; BP diastolic 52–73; PULSE 57–83; RESP 15–18; TEMP 36.5–37; O2SAT 86–96
[2023-09-26] MEDS: heparin 5,000 unit/mL INJ 1 mL 5000 UNIT SUBCUT (02:56)
[2023-09-26 05:00] LABS: Basophils % 0.2 %; Eosinophils % 0.2 %; Hematocrit 33.3 % (36-47); Lymphocytes # 2.8 10^3/uL (0.8-4.8); Lymphocytes % 18.5 %; Mean Corpuscular HGB Conc 31.5 g/dL (30-55); Mean Corpuscular Hemoglobin 29.4 pg (27-33); Mean Corpuscular Volume 93.3 fl (85-98); Mean Platelet Volume 10.9 fL (7.4-10.4); Monocytes # 0.7 10^3/uL (0.2-0.9); Monocytes % 4.9 %; Neutrophils # 11.35 10^3/uL (1.8-7.7); Neutrophils % 75.8 %; Nucleated Red Blood Cells % 0 %; Platelet Count 246 10^3/cmm (157-399); Red Blood Count 3.57 10^6/uL (3.85-5.65); Red Cell Distribution Width 13.3 % (12.1-15.1); White Blood Count 14.98 10^3/uL (3.29-11.43)
[2023-09-26] MEDS: ipratropium-albuterol 3 mL Neb INHALATION ×2 (08:22→11:20)
--- NOTE | 2023-09-26 09:05 | PC.CHAP ---
Pastoral Care Encounter/Spiritual Assessment Type of Contact [] Declined business banking relationship manager visit [] Patient/Family/Request visit [] Outpatient visit [] Follow-up visit [] Physician referral [] Code/Alert [x] Routine visit [] Staff referral [] Actively dying [] Patient sleeping [] Family support [] [] Out of room [] Palliative care [] [] Receiving care in room [] Pre-surgical visit [] Trauma [] Long length of stay [] ICU visit [] Other: Relational/Emotional Strength [x] Patient feels connected with others/family/visitors/staff [] Distress [] Loneliness/isolation [] Abandonment Spirituality of Patient [x] Person of Sari [] Attends Sikhism of their Sari [x] Believes in Prayer [] Reads Bible or Yazidi materials [] There are Spiritual issues to be addressed Squaring Shear Operator Interventions [x] Prayer [x] Active listening [] Non-anxious presence [x] Spiritual/emotional support [] Crisis/trauma care [] Spiritual counseling [] Bereavement support [] Provided bereavement packet [] Provided Bible/devotional materials [] Provided toy/stuffed animal, coloring book to patient or family member [] Provided Communion [] Anointing/[place] [] Salvation [x] Completed spiritual assessment [] Other: Impact on Illness or Injury [] Angry [] Fearful [] Anxious [] Often cries [] Exhaustion [] Unable to work [] Unable to attend methodist [] Unable to walk/stand [] Unable to read [] Unable to drive [] Unable to eat/drink [] Unable to sleep [] Unable to be with family [] Patient intubated [] Other: Summary Time spent with patient 5 min
[2023-09-26] MEDS: sodium chloride 0.9% 500 ML IV (09:52)
--- NOTE | 2023-09-26 09:59 | PC.SOCIAL ---
IMM Update pg 2 of IMM updated and reviewed w/ patient. Copy provided and copy dated, initialed and placed in chart.
--- NOTE | 2023-09-26 11:28 | PM.DCS ---
Discharge Providers Date of Admission: 09/24/23 14:32 Date of Discharge: September 26, 2023 Attending Provider at Admission: Virginia Clarke MD Attending Provider at Discharge: Virginia Clarke MD Primary Care Provider: STERLING Luna Diagnoses at Discharge Discharge Diagnosis (1) Hypertension: Status: Acute Qualifiers: Hypertension type: primary hypertension Qualified Code(s): I10 - Essential (primary) hypertension (2) Dyslipidemia: Status: Acute (3) Smoking addiction: Status: Acute (4) Pneumonia: Status: Acute (5) Oxygen dependent: Status: Acute Reason for Visit Reason for Visit: sent by otilio walters o2 Hospital Course Hospital Course admitted for sob, found to have right sided multilobar pneumonia. given cef plus azithro during hospitalization wbc 23K on admission, improved significantly pt improved and sent home on 2L NC, albuterol 14 days abx, f/u cxr in 6 weeks and f/u with pcp. advised to return to er if symptoms worsen or new symptoms develop cta r/o pe. Physical Exam Narrative: General: Alert oriented x3, patient seen sitting up on room air in no acute respiratory distress. HEENT: Normocephalic, atraumatic, EOMI, Cardio: Regular rate rhythm, lungs: cta b/l, no wheezes or ronchi, good air entry b/l GI: Abdomen soft, nontender, nondistended, bowel sounds + Behavior: Appropriate and cooperative Extremities: No edema bilateral lower extremities. Discharge Data Studies Completed and Pending Completed Studies During Hospitalization Category Date Time Status CT abdomen pelvis wo con [id number] Stat Cat Scan 09/24/23 10:56 Completed CTA PE [CT angio chest PE protcl [id number]] Stat Cat Scan 09/24/23 16:17 Completed XR chest 1V portable [id number] Stat Exams 09/24/23 10:10 Completed Pending at discharge Category Date Time Status Blood Culture Stat Lab 09/24/23 12:15 Results Sputum Culture and Gram Stain Stat Lab 09/25/23 06:12 Results Radiology Impressions Chest X-Ray 09/24/23 10:10 IMPRESSION: 1. Patchy pneumonic infiltrates in the upper, middle and lower lobes of the RIGHT lung suggesting active pneumonia. Abdomen/Pelvis CT 09/24/23 10:56 IMPRESSION: 1. New multifocal airspace opacity is noted in the right middle lobe and right lower lobe concerning for pneumonic infiltrates. 2. No acute abnormality in the abdomen or pelvis. Chest CTA 09/24/23 16:17 IMPRESSION: 1. Nodular tree-in-bud type infiltrates in the right lung worrisome for bronchitis and infectious bronchiolitis and/or bronchopneumonia. Follow-up suggested to document clearing 2. No evidence of pulmonary embolism. Laboratory Results WBC 14.98 10^3/uL (3.29-11.43) H 09/26/23 04:50 RBC 3.57 10^6/uL (3.85-5.65) L 09/26/23 04:50 Hgb 10.50 g/dL (11.27-16.99) L 09/26/23 04:50 Hct 33.3 % (36-47) L 09/26/23 04:50 MCV 93.3 fl (85-98) 09/26/23 04:50 MCH 29.4 pg (27-33) 09/26/23 04:50 MCHC 31.5 g/dL (30-55) 09/26/23 04:50 RDW 13.3 % (12.1-15.1) 09/26/23 04:50 Plt Count 246 10^3/cmm (157-399) 09/26/23 04:50 MPV 10.9 fL (7.4-10.4) H 09/26/23 04:50 Neut % (Auto) 75.8 % 09/26/23 04:50 Lymph % (Auto) 18.5 % 09/26/23 04:50 [place] % (Auto) 4.9 % 09/26/23 04:50 Eos % (Auto) 0.2 % 09/26/23 04:50 Baso % (Auto) 0.2 % 09/26/23 04:50 Neut # (Auto) 11.35 10^3/uL (1.8-7.7) H 09/26/23 04:50 Lymph # (Auto) 2.8 10^3/uL (0.8-4.8) 09/26/23 04:50 [place] # (Auto) 0.7 10^3/uL (0.2-0.9) 09/26/23 04:50 Eos # (Auto) 0.0 10^3/uL (0.0-0.8) 09/26/23 04:50 Baso # (Auto) 0.0 10^3/uL (0.0-0.1) 09/26/23 04:50 Nucleated RBC % (auto) 0 % 09/26/23 04:50 Nucleated RBCs # 0.0 /100WBC 09/26/23 04:50 D-Dimer 2.89 ug/mLFEU (0-0.59) H 09/24/23 10:34 Specimen Type Arterial 09/24/23 11:26 Sample Site Radial, left 09/24/23 11:26 ABG pH 7.49 (7.35-7.45) H 09/24/23 11:26 ABG pCO2 34.8 mmHg (35-45) L 09/24/23 11:26 ABG pO2 56.6 mmHg (80.0-100.0) L 09/24/23 11:26 ABG PO2/FiO2 Ratio 0 09/24/23 11:26 ABG HCO3 26.3 mmol/L (22-26) H 09/24/23 11:26 ABG O2 Saturation 91.4 09/24/23 11:26 ABG Base Excess 3.2 mmol/L (-2.0-2.0) H 09/24/23 11:26 Gopi Test Pos 09/24/23 11:26 A-a O2 Gradient 6.6 mmHg (5-10) 09/24/23 11:26 Hematocrit 44.9 % (37-47) 09/24/23 11:26 Hgb O2 Saturation 89.6 % (95-100) L 09/24/23 11:26 Carboxyhemoglobin 1.9 %THgb (0.4-20.1) 09/24/23 11:26 Methemoglobin 0.1 % (0.4-1.5) L 09/24/23 11:26 Total Hemoglobin 14.7 g/dL (12-16) 09/24/23 11:26 Sodium 139.0 mmol/L (131-143) 09/24/23 11:26 Potassium 3.7 mmol/L (3.5-5.0) 09/24/23 11:26 Glucose 103.0 mg/dL (70-115) 09/24/23 11:26 Ionized Calcium 1.2 mmol/L (1.1-1.4) 09/24/23 11:26 O2 Delivery Device Room air 09/24/23 11:26 FiO2 21.0 % 09/24/23 11:26 Wholesale Buyer ID glc 09/24/23 11:26 Sodium 139 mmol/L (136-145) 09/25/23 06:51 Potassium 3.9 mmol/L (3.5-5.1) 09/25/23 06:51 Chloride 107 mmol/L (98-107) 09/25/23 06:51 Carbon Dioxide 24 mmol/L (22-29) 09/25/23 06:51 Anion Gap 11.9 (5-19) 09/25/23 06:51 BUN 12 mg/dL (8-23) 09/25/23 06:51 Creatinine 0.6 mg/dL (0.5-0.9) 09/25/23 06:51 GFR Calculation Not Reportable 09/25/23 06:51 Glucose 136 mg/dL (65-115) H 09/25/23 06:51 Calculated Osmolality 290 mOsm/kg (285-295) 09/25/23 06:51 Lactic Acid 1.1 mmol/L (0.5-2.2) 09/24/23 10:34 Calcium 8.7 mg/dL (8.5-10.5) 09/25/23 06:51 Magnesium 2.1 mg/dL (1.7-2.3) 09/25/23 06:51 Total Bilirubin 0.3 mg/dL (0.15-1.2) 09/25/23 06:51 AST 41 U/L (0-32) H 09/25/23 06:51 ALT 61 U/L (0-33) H 09/25/23 06:51 Alkaline Phosphatase 94 U/L (35-105) 09/25/23 06:51 Troponin T Baseline 16 ng/L (0-10) H 09/24/23 10:34 Troponin T 120 Minute 15.06 ng/L (0-10) H 09/24/23 12:08 Delta Troponin T -0.94 ABS# (0-10) L 09/24/23 12:08 Troponin T Hi Sens 6Hr 12.43 ng/L (0-10) H 09/24/23 17:53 Troponin T Hi Sens 6Hr Delta -3.57 ng/L (0-12) L 09/24/23 17:53 Total Protein 6.5 g/dL (6.6-8.7) L 09/25/23 06:51 Albumin 3.5 g/dL (3.5-5.2) 09/25/23 06:51 Globulin 3.0 g/dL (1.3-4.6) 09/25/23 06:51 Procalcitonin 0.17 ng/mL (0-0.5) 09/24/23 10:34 Urine Color Yellow (Yellow) 09/24/23 11:05 Urine Appearance Cloudy (CLEAR) A 09/24/23 11:05 Urine pH 5 (5-7) 09/24/23 11:05 Ur Specific [place] 1.025 (1.005-1.030) 09/24/23 11:05 Urine Protein 1+ (Negative) H 09/24/23 11:05 Urine Glucose (UA) Norm (Normal) 09/24/23 11:05 Urine Ketones 1+ (Negative) H 09/24/23 11:05 Urine Blood 2+ (Negative) H 09/24/23 11:05 Urine Nitrate Negative (Negative) 09/24/23 11:05 Urine Bilirubin Neg (Negative) 09/24/23 11:05 Urine Urobilinogen 1 mg/dL (Negative) H 09/24/23 11:05 Ur Leukocyte Esterase Trace (Negative) H 09/24/23 11:05 Urine RBC 0-4 /hpf (0-2) H 09/24/23 11:05 Urine WBC 0-4 /hpf (0-5) H 09/24/23 11:05 Ur Squamous Epith Cells 0-4 /hpf (0-5) H 09/24/23 11:05 Amorphous Sediment Not Reportable 09/24/23 11:05 Urine Bacteria 1+ /hpf (NONE) H 09/24/23 11:05 Urine Mucus 2+ /hpf 09/24/23 11:05 Vitals Last Vital Signs Temp 98.0 F 09/26/23 07:27 Pulse 77 09/26/23 11:24 Resp 16 09/26/23 11:21 BP 89/57 09/26/23 07:27 Pulse Ox 92 09/26/23 11:21 O2 Del Method Room Air 09/26/23 11:21 O2 Flow Rate 2 09/26/23 11:16 Discharge Plan Discharge Patient Disposition: Home Condition: Stable Prescriptions: New amoxicillin-pot clavulanate 875-125 mg tablet 1 tab PO BID 13 Days Qty: 26 0RF albuterol sulfate 90 mcg/actuation HFA aerosol inhaler 2 inh inhalation QID PRN (Reason: shortness of breath or wheezing) Qty: 8.5 0RF Continued tizanidine 4 mg tablet 4 mg PO BID PRN (Reason: muscle spasticity) Qty: 60 0RF Plavix 75 mg tablet 75 mg PO DAILY Qty: 90 3RF nitroglycerin [Nitrostat] 0.4 mg Tablet, Sublingual 0.4 mg SUBLINGUAL Q5M PRN (Reason: Chest Pain) Rx Instructions: do not exceed 3 doses per episode Calcium 600 600 mg calcium (1,500 mg) Tablet 600 mg PO DAILY magnesium 250 mg Tablet 250 mg PO DAILY Vitamin D3 50 mcg (2,000 unit) Capsule 50 mcg PO DAILY atorvastatin 20 mg tablet 20 mg PO QPM Discontinued amlodipine 5 mg tablet 5 mg PO DAILY Qty: 90 3RF Discharge Orders: Discharge Order (Routine); Ordered 09/26/23 Ordered By: Virginia Clarke Other Ambulatory Orders: DME: Oxygen (Order) Location: None Selected Ordered By: Virginia Clarke XR chest 1V [id number] (Routine) Timeframe: 1 Week Facility: [facility] - Location: Radiology [facility] Ordered By: Virginia Clarke Referrals: Nyasia Brito FNP [Primary Care Provider] - 10/01/23 8:30 am Discharge Diet: Cardiac Discharge Activity: Resume usual activity Patient Instructions: COPD, Albuterol (By breathing), Amoxicillin/Clavulanate Potassium (By mouth), Pneumonia (GEN), COPD Stoplight, Opioid Safety, Pneumonia Stoplight Discharge Attestations Time Spent in Discharge Care*: less than 30 min Quality Metrics Clinical Quality Measures [ No reported AMI, CVA or VTE this stay] Coding Level of Care Code Acute Code for Chg Fwd Diagnoses Primary hypertension I10 Hypertension type: primary hypertension Dyslipidemia E78.5 Smoking addiction F17.200 Pneumonia J18.9 Oxygen dependent Z99.81
--- NOTE | 2023-09-26 13:55 | PC.NURSE ---
Home oxygen delivery is pending. Once oxygen is delivered, patient will be discharged.
--- NOTE | 2023-09-26 14:42 | PC.NURSE ---
Discharge Note Patient discharged to home via POV accompanied by family. Discharge instructions reviewed with patient and/or financial services representative. Mobile pharmacy medications and/or prescriptions provided. Belongings/home medications returned.
== END 2023-09-26 14:43 | disposition home or self-care (01) | DRG 195 ==
LOC: ER 10:52 → MEDSURG 14:33
PROVIDERS: Admitting Provider Internal Medicine; Emergency Provider Family Medicine; PCP Nurse Practitioner Family; Visit Provider Internal Medicine
DX: J18.9 Pneumonia, unspecified organism (principal); I25.10 Atherosclerotic heart disease of native coronary artery without angina pectoris; I10 Essential (primary) hypertension; F17.210 Nicotine dependence, cigarettes, uncomplicated; E78.5 Hyperlipidemia, unspecified; K57.90 Diverticulosis of intestine, part unspecified, without perforation or abscess without bleeding; Z99.81 Dependence on supplemental oxygen; J44.9 Chronic obstructive pulmonary disease, unspecified
CPT/HCPCS: 36415; 36600; 71045; 71275; 74176; 80051; 80053; 81001; 82330; 82805; 83605; 83735; 84145; 84484; 85025; 85378; 86403; 87040; 87070; 87205; 87449; 93005; 94640; 94760; 96365; 96367; 96372; 96375; 97116; 97161; 99285; J0456; J0696; J1644; J2405; J2919; J7030; J7040; J7050; Q9967

== ENCOUNTER 2023-10-03 14:56 | Outpatient (CLI) | payer MEDICARE, OTHER, SELFPAY ==
--- NOTE | 2023-10-03 15:01 | XR_ITS ---
WS: [id number] Exam: XR chest 1V [id number] Date/Time of Exam: 10/03/2023 3:01 PM Reason For Exam: follow resolution of pna Comparison 09/24/2023. RIGHT pulmonary infiltrates have almost completely resolved since the last exam . The LEFT lung is clear. No pleural effusions. No pneumothorax. Normal cardiomediastinal silhouette. XR/XR chest 1V [id number] IMPRESSION: 1. RIGHT pulmonary infiltrates demonstrating almost complete resolution since t he prior study.
== END 2023-10-03 14:57 | disposition home or self-care (01) ==
LOC: RAD 14:58
PROVIDERS: PCP Nurse Practitioner Family; Visit Provider Internal Medicine
DX: J18.9 Pneumonia, unspecified organism (principal)
CPT/HCPCS: 71045

== ENCOUNTER → 2024-09-21 15:25 | Outpatient (BNVA) | payer MEDICARE, OTHER, SELFPAY | PROVIDERS: PCP Nurse Practitioner Family; Visit Provider Internal Medicine Cardiovascular Disease | DX: I25.10 Atherosclerotic heart disease of native coronary artery without angina pectoris (principal); I10 Essential (primary) hypertension; E78.5 Hyperlipidemia, unspecified; Z79.02 Long term (current) use of antithrombotics/antiplatelets; F17.210 Nicotine dependence, cigarettes, uncomplicated | CPT/HCPCS: 99214 ==